=== PATIENT | female | born 1945 | race American Indian/Alaskan Native ===

== ENCOUNTER 2017-08-30 22:18 | Emergency (ER) | payer MEDICARE, MEDICAID ==
[~2017-08-30] VITALS: Ht 160 cm; Wt 114.0 kg
[~2017-08-30 22:18] MED LIST: ASPI-611 PO; CHOL10002 PO; DICY10CA88 PO; DIPH25CA83 PO; DOCU100C40 PO; GUAI600T45 PO; HYDR-565 PO; IBUP-1984 PO; LACT1CAP26 PO; LEVA15HF4 INH; LEVO50TA PO; LEVO750T46 PO; LOSA50TA3 PO; MAGN500T2 PO; METF1000 PO; NICO-631 TD; PANT40TA4 PO; PHEN15CA PO; ROSU10TA PO; SAXA5TAB PO; UMEC62.5 INH
[2017-08-30 22:24] VITALS: BP 140/66
== END 2017-08-31 00:04 | disposition home or self-care (01) ==
LOC: ER 22:19
DX: R04.0 Epistaxis (principal); E78.00 Pure hypercholesterolemia, unspecified; I10 Essential (primary) hypertension; J44.9 Chronic obstructive pulmonary disease, unspecified; E11.9 Type 2 diabetes mellitus without complications; Z90.49 Acquired absence of other specified parts of digestive tract; Z88.0 Allergy status to penicillin; Z88.2 Allergy status to sulfonamides; Z88.8 Allergy status to other drugs, medicaments and biological substances; Z91.040 Latex allergy status; Z91.013 Allergy to seafood; Z88.5 Allergy status to narcotic agent; Z91.018 Allergy to other foods; Z79.82 Long term (current) use of aspirin; Z79.84 Long term (current) use of oral hypoglycemic drugs; Z79.899 Other long term (current) drug therapy
CPT/HCPCS: 99281

== ENCOUNTER 2017-10-08 16:49 | Inpatient (IN) | payer MEDICARE, MEDICAID ==
[~2017-10-08] VITALS: Ht 160 cm; Wt 119.0 kg
[2017-10-08 17:35] LABS: BASOPHILS % (AUTO) 0 % (0-1); EOSINOPHILS # (AUTO) 0.1 X10'3 (0-0.9); EOSINOPHILS % (AUTO) 0.8 % (0-6); HEMATOCRIT 43.6 % (35.0-45.0); HEMOGLOBIN 14.4 g/dl (12.0-16.0); LYMPHOCYTES # (AUTO) 0.9 X10'3 (1.1-4.8); LYMPHOCYTES % (AUTO) 8.9 % (21-51); MEAN CORPUSCULAR HEMOGLOBIN 28.5 PG (27.0-31.0); MEAN CORPUSCULAR VOLUME 86.5 FL (78-98); MEAN PLATELET VOLUME 6.9 FL (7.4-10.4); MONOCYTES # (AUTO) 0.4 X10'3 (0-0.9); MONOCYTES % (AUTO) 3.5 % (2-12); NEUTROPHILS % (AUTO) 86.8 % (42-75); PLATELET COUNT 354 X10'3 (140-440); RED BLOOD COUNT 5.05 X10'6 (4.20-5.60); RED CELL DISTRIBUTION WIDTH 15.3 % (11.5-14.5); WHITE BLOOD COUNT 10.3 X10'3 (4.5-11.0)
[2017-10-08 17:49] LABS: PARTIAL THROMBOPLASTIN TIME 28 SECONDS (22-32); PROTHROMBIN TIME 10.6 SECONDS (9.0-12.0)
[2017-10-08 17:59] LABS: ALANINE AMINOTRANSFERASE 26 U/L (12-78); ALBUMIN/GLOBULIN RATIO 0.5 (1.1-1.5); ALKALINE PHOSPHATASE 143 IU/L (46-116); ANION GAP 7 (8-16); ASPARTATE AMINO TRANSFERASE 24 U/L (10-37); BILIRUBIN,TOTAL 0.7 MG/DL (0.1-1.0); BLOOD UREA NITROGEN 14 MG/DL (7-18); BUN/CREATININE RATIO 19.2 (6.6-38.0); CALCIUM 8.8 MG/DL (8.5-10.1); CHLORIDE 99 MMOL/L (99-107); CREATININE 0.73 MG/DL (0.40-0.90); GLUCOSE 159 MG/DL (70-104); POTASSIUM 3.7 MMOL/L (3.5-5.1); SODIUM 138 MMOL/L (135-145); TOTAL CARBON DIOXIDE 32.2 MMOL/L (24-32); TOTAL PROTEIN 8.5 G/DL (6.4-8.2); eGFR 79 ML/MIN
[2017-10-08 20:14] LABS: D-DIMER 0.73 MG/L FEU (0-0.50)
[2017-10-08 20:25] LABS: ABG BASE EXCESS 2.3 mmol/L (-2.0-3.0); ABG HCO3 28.5 mmol/L (22.0-26.0); ABG OXYGEN SATURATION 92.9 % (95-98); ABG PCO2 (T) 50.2 mmHg (32.0-45.0); ABG PH (T) 7.373 (7.350-7.450); ABG PO2 (T) 71.4 mmHg (83-108); ALLEN'S TEST Positive; FCOHb 3.1 % (0.5-1.5); FLOW 5 L/min; FMetHb 0.1 % (0.3-1.12); FO2Hb 89.9 % (94-100); PATIENT TEMPERATURE 37.1; RESPIRATORY RATE (OBSERVED) 20 b/min
[2017-10-08] MEDS ORDERED: NORepinephrine 8mg/ 250ml NS 250 ML IV SCH (20:50)
[2017-10-08] MEDS ORDERED: furosemide 10 MG/1 ML 10ml inj IV ONE (21:25)
[2017-10-08] MEDS ORDERED: iohexol 350MG/ML 100ml bottle IV ONE (22:11)
[2017-10-08 22:33] LABS: CLARITY,URINE SLIGHTLY CLOUDY (Clear); COLOR,URINE YELLOW (Yellow); GLUCOSE, URINE NEGATIVE (Neg); KETONES,URINE NEGATIVE (Neg); LEUKOCYTE ESTERASE ,URINE NEGATIVE (Neg); NITRITES, URINE NEGATIVE (Neg); OCCULT BLOOD,URINE SMALL (Neg); PH,URINE 5.5 (4.8-8.0); PROTEIN,URINE 100 mg/dl (Neg); UROBILINOGEN,URINE 0.2 E.U/dL (0.2-1.0)
[2017-10-08 22:34] LABS: UA COLLECTION TYPE CLN CATCH MIDSTREAM
[2017-10-08 22:44] LABS: BACTERIA,URINE FEW /HPF (Neg); MUCUS STRANDS MODERATE /LPF (Neg); RBC,URINE 0-2 /HPF (0-2); SQUAMOUS EPITHELIAL CELL,UR MODERATE /LPF (FEW); WBC,URINE 0-4 /HPF (0-4)
[2017-10-08] MEDS ORDERED: mag hydrox/Alum hydrox/simeth 30ml oral suspension PO PRN (22:45)
[2017-10-08] MEDS ORDERED: magnesium hydroxide 30ml (MOM) UD suspension PO PRN (22:45)
[2017-10-08] MEDS ORDERED: ondansetron/PF 4mg/2ml inj IV PRN (22:45)
[2017-10-08] MEDS: ipratropium/albuterol 3ml nebule NEB SCH (23:00)
[2017-10-08] MEDS ORDERED: glucagon, human recombinant 1mg kit SUBCUT PRN (23:00)
[2017-10-08] MEDS ORDERED: dextrose 50%-water 50ml dispensing syringe IV PRN ×2 (23:00)
[2017-10-08] MEDS ORDERED: dextrose ORAL solution 15 GM/59 ML bottle PO PRN ×2 (23:00)
[2017-10-08] MEDS ORDERED: MESSAGE TO PHARMACY PO ONE (23:00)
[2017-10-08 23:38] LABS: HEMOGLOBIN A1C 7.3 % (4.5-6.2)
[2017-10-08] MEDS: cefTRIAXone 1g/NS 100ml IVPB 100 ML IV SCH (23:39)
[2017-10-09] MEDS ORDERED: methylPREDNISolone sod succ 125mg/2ml vial IV ONE
[2017-10-09] MEDS: HYDROcodone/acetaminophen 5mg/325mg tablet PO PRN ×3 (02:19→18:05)
[2017-10-09] MEDS: ipratropium/albuterol 3ml nebule NEB SCH ×5 (03:11→20:21)
[2017-10-09 05:55] LABS: BASOPHILS % (AUTO) 0 % (0-1); EOSINOPHILS # (AUTO) 0.2 X10'3 (0-0.9); EOSINOPHILS % (AUTO) 1.6 % (0-6); HEMATOCRIT 42.1 % (35.0-45.0); HEMOGLOBIN 14.1 g/dl (12.0-16.0); LYMPHOCYTES # (AUTO) 0.9 X10'3 (1.1-4.8); LYMPHOCYTES % (AUTO) 8.1 % (21-51); MEAN CORPUSCULAR HEMOGLOBIN 28.7 PG (27.0-31.0); MEAN CORPUSCULAR HGB CONC 33.4 % (33.0-36.5); MEAN CORPUSCULAR VOLUME 86.1 FL (78-98); MEAN PLATELET VOLUME 6.9 FL (7.4-10.4); MONOCYTES # (AUTO) 0.1 X10'3 (0-0.9); MONOCYTES % (AUTO) 0.8 % (2-12); NEUTROPHILS % (AUTO) 89.5 % (42-75); PLATELET COUNT 360 X10'3 (140-440); RED BLOOD COUNT 4.89 X10'6 (4.20-5.60); RED CELL DISTRIBUTION WIDTH 15.3 % (11.5-14.5); WHITE BLOOD COUNT 11.2 X10'3 (4.5-11.0)
[2017-10-09 06:18] LABS: ALANINE AMINOTRANSFERASE 25 U/L (12-78); ALBUMIN/GLOBULIN RATIO 0.6 (1.1-1.5); ALKALINE PHOSPHATASE 133 IU/L (46-116); ANION GAP 9 (8-16); ASPARTATE AMINO TRANSFERASE 23 U/L (10-37); BILIRUBIN,TOTAL 0.5 MG/DL (0.1-1.0); BLOOD UREA NITROGEN 17 MG/DL (7-18); BUN/CREATININE RATIO 21.3 (6.6-38.0); CALCIUM 8.9 MG/DL (8.5-10.1); CHLORIDE 98 MMOL/L (99-107); GLUCOSE 252 MG/DL (70-104); POTASSIUM 4.2 MMOL/L (3.5-5.1); SODIUM 137 MMOL/L (135-145); TOTAL CARBON DIOXIDE 29.9 MMOL/L (24-32); TOTAL PROTEIN 8.4 G/DL (6.4-8.2); eGFR 71 ML/MIN
[2017-10-09] MEDS: levoTHYROXINE 25mcg tablet PO SCH (07:05)
[2017-10-09] MEDS: pantoprazole 40mg Tablet.DR PO SCH (07:06)
[2017-10-09] MEDS: losartan 50mg tablet PO SCH (07:50)
[2017-10-09] MEDS: heparin, porcine 5000 units/ml vial SQ SCH ×2 (07:50→21:06)
[2017-10-09] MEDS: lactobacillus rhamnosus 10,000 MMU CELLS/CAPSULE PO SCH ×2 (07:51→21:06)
[2017-10-09] MEDS: atorvastatin 20mg tablet PO SCH (07:51)
[2017-10-09] MEDS: aspirin 81mg tablet.DR PO SCH (07:51)
[2017-10-09] MEDS: linagliptin 5mg tablet PO SCH (07:52)
[2017-10-09] MEDS: cefTRIAXone 1g/NS 100ml IVPB 100 ML IV SCH (07:52)
[2017-10-09] MEDS: insulin Lispro (HumaLOG) vial - multi-dose SQ SCH (08:39)
[2017-10-09 15:10] LABS: ABG BASE EXCESS 4.5 mmol/L (-2.0-3.0); ABG HCO3 32.6 mmol/L (22.0-26.0); ABG OXYGEN SATURATION 92.3 % (95-98); ABG PCO2 (T) 63.9 mmHg (32.0-45.0); ABG PH (T) 7.325 (7.350-7.450); ABG PO2 (T) 68.4 mmHg (83-108); ALLEN'S TEST Positive; FCOHb 1.3 % (0.5-1.5); FLOW 6 L/min; FMetHb 0.2 % (0.3-1.12); FO2Hb 90.9 % (94-100); TOTAL HEMOGLOBIN 14.3 G/dl (12.0-16.0)
[2017-10-09 17:57] VITALS: BP 99/63
[2017-10-09 18:00] VITALS: BP 109/54
[2017-10-09] MEDS: insulin glargine (Lantus) pen - multi-dose SQ SCH (21:00)
[2017-10-09 22:00] VITALS: BP 108/45
[2017-10-09] MEDS: acetaminophen 325mg tablet PO PRN (23:28)
[2017-10-10 02:00] VITALS: BP 116/58
[2017-10-10] MEDS: ipratropium/albuterol 3ml nebule NEB SCH ×7 (04:11→23:52)
[2017-10-10 07:22] LABS: BASOPHILS % (AUTO) 0.3 % (0-1); EOSINOPHILS # (AUTO) 0.1 X10'3 (0-0.9); EOSINOPHILS % (AUTO) 1.3 % (0-6); HEMATOCRIT 41.7 % (35.0-45.0); LYMPHOCYTES # (AUTO) 1.7 X10'3 (1.1-4.8); LYMPHOCYTES % (AUTO) 16.3 % (21-51); MEAN CORPUSCULAR HEMOGLOBIN 28.7 PG (27.0-31.0); MEAN CORPUSCULAR HGB CONC 33.6 % (33.0-36.5); MEAN CORPUSCULAR VOLUME 85.6 FL (78-98); MEAN PLATELET VOLUME 6.9 FL (7.4-10.4); MONOCYTES # (AUTO) 0.3 X10'3 (0-0.9); MONOCYTES % (AUTO) 2.8 % (2-12); NEUTROPHILS # (AUTO) 8.2 X10'3 (1.8-7.7); NEUTROPHILS % (AUTO) 79.3 % (42-75); PLATELET COUNT 368 X10'3 (140-440); RED BLOOD COUNT 4.87 X10'6 (4.20-5.60); WHITE BLOOD COUNT 10.3 X10'3 (4.5-11.0)
[2017-10-10 07:25] VITALS: BP 100/60
[2017-10-10 07:30] LABS: ALANINE AMINOTRANSFERASE 27 U/L (12-78); ALBUMIN/GLOBULIN RATIO 0.6 (1.1-1.5); ALKALINE PHOSPHATASE 136 IU/L (46-116); ANION GAP 6 (8-16); ASPARTATE AMINO TRANSFERASE 28 U/L (10-37); BILIRUBIN,TOTAL 0.5 MG/DL (0.1-1.0); BLOOD UREA NITROGEN 16 MG/DL (7-18); BUN/CREATININE RATIO 23.9 (6.6-38.0); CALCIUM 9.2 MG/DL (8.5-10.1); CHLORIDE 96 MMOL/L (99-107); CREATININE 0.67 MG/DL (0.40-0.90); GLUCOSE 138 MG/DL (70-104); POTASSIUM 3.9 MMOL/L (3.5-5.1); SODIUM 137 MMOL/L (135-145); TOTAL PROTEIN 8.4 G/DL (6.4-8.2); eGFR 87 ML/MIN
[2017-10-10] MEDS: losartan 50mg tablet PO SCH (08:00)
[2017-10-10] MEDS: cefTRIAXone 1g/NS 100ml IVPB 100 ML IV SCH (08:10)
[2017-10-10] MEDS: lactobacillus rhamnosus 10,000 MMU CELLS/CAPSULE PO SCH ×2 (08:10→21:16)
[2017-10-10] MEDS: levoTHYROXINE 25mcg tablet PO SCH (08:11)
[2017-10-10] MEDS: heparin, porcine 5000 units/ml vial SQ SCH ×2 (08:11→21:17)
[2017-10-10] MEDS: atorvastatin 20mg tablet PO SCH (08:11)
[2017-10-10] MEDS: linagliptin 5mg tablet PO SCH (08:12)
[2017-10-10] MEDS: aspirin 81mg tablet.DR PO SCH (08:12)
[2017-10-10] MEDS: pantoprazole 40mg Tablet.DR PO SCH (08:12)
[2017-10-10] MEDS: methylPREDNISolone sod succ 125mg/2ml vial IV SCH ×2 (09:55→21:16)
[2017-10-10 11:00] VITALS: BP 129/61
[2017-10-10 11:46] LABS: ABG BASE EXCESS 2.9 mmol/L (-2.0-3.0); ABG HCO3 30.9 mmol/L (22.0-26.0); ABG OXYGEN SATURATION 90.9 % (95-98); ABG PCO2 (T) 62.4 mmHg (32.0-45.0); ABG PH (T) 7.313 (7.350-7.450); ABG PO2 (T) 63.5 mmHg (83-108); FCOHb 1.1 % (0.5-1.5); FLOW 6 L/min; FMetHb 0.2 % (0.3-1.12); FO2Hb 89.7 % (94-100); TOTAL HEMOGLOBIN 14.5 G/dl (12.0-16.0)
[2017-10-10 15:00] VITALS: BP 99/80
[2017-10-10 19:00] VITALS: BP 115/49
[2017-10-10] MEDS: insulin Lispro (HumaLOG) vial - multi-dose SQ SCH (19:34)
[2017-10-10] MEDS: insulin glargine (Lantus) pen - multi-dose SQ SCH (21:31)
[2017-10-10] MEDS: acetaminophen 325mg tablet PO PRN (21:37)
[2017-10-10 23:00] VITALS: BP 118/83
[2017-10-11] VITALS (7 sets, daily range): BP systolic 106–135; BP diastolic 40–72
[2017-10-11] MEDS: ipratropium/albuterol 3ml nebule NEB SCH ×6 (03:39→23:38)
[2017-10-11 06:34] LABS: BASOPHILS % (AUTO) 0.2 % (0-1); EOSINOPHILS # (AUTO) 0.1 X10'3 (0-0.9); EOSINOPHILS % (AUTO) 1.3 % (0-6); HEMATOCRIT 42.2 % (35.0-45.0); HEMOGLOBIN 14.1 g/dl (12.0-16.0); LYMPHOCYTES # (AUTO) 0.8 X10'3 (1.1-4.8); LYMPHOCYTES % (AUTO) 10.4 % (21-51); MEAN CORPUSCULAR HEMOGLOBIN 28.7 PG (27.0-31.0); MEAN CORPUSCULAR HGB CONC 33.3 % (33.0-36.5); MEAN CORPUSCULAR VOLUME 86.2 FL (78-98); MONOCYTES # (AUTO) 0.1 X10'3 (0-0.9); MONOCYTES % (AUTO) 1.2 % (2-12); NEUTROPHILS % (AUTO) 86.9 % (42-75); PLATELET COUNT 320 X10'3 (140-440); RED CELL DISTRIBUTION WIDTH 14.5 % (11.5-14.5); WHITE BLOOD COUNT 8.1 X10'3 (4.5-11.0)
[2017-10-11 07:03] LABS: ALANINE AMINOTRANSFERASE 38 U/L (12-78); ALBUMIN/GLOBULIN RATIO 0.6 (1.1-1.5); ALKALINE PHOSPHATASE 158 IU/L (46-116); ANION GAP 4 (8-16); ASPARTATE AMINO TRANSFERASE 38 U/L (10-37); BILIRUBIN,TOTAL 0.5 MG/DL (0.1-1.0); BLOOD UREA NITROGEN 17 MG/DL (7-18); BUN/CREATININE RATIO 30.4 (6.6-38.0); CALCIUM 9.4 MG/DL (8.5-10.1); CHLORIDE 98 MMOL/L (99-107); CREATININE 0.56 MG/DL (0.40-0.90); GLUCOSE 198 MG/DL (70-104); POTASSIUM 4.9 MMOL/L (3.5-5.1); SODIUM 138 MMOL/L (135-145); TOTAL CARBON DIOXIDE 35.6 MMOL/L (24-32); TOTAL PROTEIN 8.3 G/DL (6.4-8.2); eGFR > 90 ML/MIN
[2017-10-11] MEDS: furosemide 20 MG/2 ML vial IV SCH (07:13)
[2017-10-11] MEDS: methylPREDNISolone sod succ 125mg/2ml vial IV SCH ×2 (07:13→20:16)
[2017-10-11] MEDS: linagliptin 5mg tablet PO SCH (07:14)
[2017-10-11] MEDS: levoTHYROXINE 25mcg tablet PO SCH (07:14)
[2017-10-11] MEDS: heparin, porcine 5000 units/ml vial SQ SCH ×2 (07:14→20:16)
[2017-10-11] MEDS: lactobacillus rhamnosus 10,000 MMU CELLS/CAPSULE PO SCH ×2 (07:15→20:12)
[2017-10-11] MEDS: losartan 25mg tablet PO SCH (07:15)
[2017-10-11] MEDS: pantoprazole 40mg Tablet.DR PO SCH (07:15)
[2017-10-11] MEDS: aspirin 81mg tablet.DR PO SCH (07:15)
[2017-10-11] MEDS: atorvastatin 20mg tablet PO SCH (07:15)
[2017-10-11] MEDS ORDERED: CefTRIAXone/D5W-Rocephin 1gm 50 ML IV SCH (08:00)
[2017-10-11] MEDS: insulin Lispro (HumaLOG) vial - multi-dose SQ SCH ×2 (09:55→13:23)
[2017-10-11] MEDS ORDERED: nicotine 14mg patch - 24hr TD ONE (14:00)
[2017-10-11] MEDS: HYDROcodone/acetaminophen 5mg/325mg tablet PO PRN (20:12)
[2017-10-11] MEDS: insulin glargine (Lantus) pen - multi-dose SQ SCH (21:42)
[2017-10-12 02:00] VITALS: BP 125/68
[2017-10-12] MEDS: ipratropium/albuterol 3ml nebule NEB SCH ×5 (03:32→20:19)
[2017-10-12] MEDS: HYDROcodone/acetaminophen 5mg/325mg tablet PO PRN ×2 (04:42→21:09)
[2017-10-12 05:24] LABS: BASOPHILS % (AUTO) 0.1 % (0-1); EOSINOPHILS # (AUTO) 0.1 X10'3 (0-0.9); EOSINOPHILS % (AUTO) 1.2 % (0-6); HEMATOCRIT 41.1 % (35.0-45.0); HEMOGLOBIN 13.7 g/dl (12.0-16.0); LYMPHOCYTES # (AUTO) 0.8 X10'3 (1.1-4.8); LYMPHOCYTES % (AUTO) 7.7 % (21-51); MEAN CORPUSCULAR HEMOGLOBIN 28.8 PG (27.0-31.0); MEAN CORPUSCULAR HGB CONC 33.3 % (33.0-36.5); MEAN CORPUSCULAR VOLUME 86.4 FL (78-98); MEAN PLATELET VOLUME 7.1 FL (7.4-10.4); MONOCYTES # (AUTO) 0.3 X10'3 (0-0.9); MONOCYTES % (AUTO) 2.8 % (2-12); NEUTROPHILS # (AUTO) 9.4 X10'3 (1.8-7.7); NEUTROPHILS % (AUTO) 88.2 % (42-75); PLATELET COUNT 333 X10'3 (140-440); RED BLOOD COUNT 4.76 X10'6 (4.20-5.60); RED CELL DISTRIBUTION WIDTH 14.8 % (11.5-14.5); WHITE BLOOD COUNT 10.6 X10'3 (4.5-11.0)
[2017-10-12 06:00] VITALS: BP 123/50
[2017-10-12 06:36] LABS: ALANINE AMINOTRANSFERASE 36 U/L (12-78); ALBUMIN/GLOBULIN RATIO 0.6 (1.1-1.5); ALKALINE PHOSPHATASE 143 IU/L (46-116); ANION GAP 5 (8-16); ASPARTATE AMINO TRANSFERASE 29 U/L (10-37); BILIRUBIN,TOTAL 0.4 MG/DL (0.1-1.0); BLOOD UREA NITROGEN 20 MG/DL (7-18); BUN/CREATININE RATIO 31.3 (6.6-38.0); CALCIUM 9.3 MG/DL (8.5-10.1); CHLORIDE 98 MMOL/L (99-107); CREATININE 0.64 MG/DL (0.40-0.90); GLUCOSE 237 MG/DL (70-104); POTASSIUM 4.9 MMOL/L (3.5-5.1); SODIUM 138 MMOL/L (135-145); TOTAL CARBON DIOXIDE 34.9 MMOL/L (24-32); TOTAL PROTEIN 8.3 G/DL (6.4-8.2); eGFR > 90 ML/MIN
[2017-10-12] MEDS: methylPREDNISolone sod succ 125mg/2ml vial IV SCH ×2 (07:36→19:39)
[2017-10-12] MEDS: furosemide 20 MG/2 ML vial IV SCH (07:36)
[2017-10-12] MEDS: nicotine 14mg patch - 24hr TD SCH (07:37)
[2017-10-12] MEDS: heparin, porcine 5000 units/ml vial SQ SCH ×2 (07:37→19:38)
[2017-10-12] MEDS: lactobacillus rhamnosus 10,000 MMU CELLS/CAPSULE PO SCH ×2 (07:37→19:36)
[2017-10-12] MEDS: pantoprazole 40mg Tablet.DR PO SCH (07:38)
[2017-10-12] MEDS: linagliptin 5mg tablet PO SCH (07:38)
[2017-10-12] MEDS: aspirin 81mg tablet.DR PO SCH (07:38)
[2017-10-12] MEDS: atorvastatin 20mg tablet PO SCH (07:38)
[2017-10-12] MEDS: losartan 25mg tablet PO SCH (07:38)
[2017-10-12] MEDS: levoTHYROXINE 25mcg tablet PO SCH (07:38)
[2017-10-12] MEDS: CefTRIAXone inj 1,000 MG in normal saline 100ml IV soln 100 ML IV SCH (07:50)
[2017-10-12] MEDS: insulin Lispro (HumaLOG) vial - multi-dose SQ SCH ×2 (09:08→13:28)
[2017-10-12 11:00] VITALS: BP 114/52
[2017-10-12 15:00] VITALS: BP 127/54
[2017-10-12 18:30] VITALS: BP 133/52
[2017-10-12] MEDS: insulin glargine (Lantus) pen - multi-dose SQ SCH (21:27)
[2017-10-12 22:00] VITALS: BP 126/57
[2017-10-13] MEDS: ipratropium/albuterol 3ml nebule NEB SCH ×5 (00:43→15:35)
[2017-10-13] MEDS: HYDROcodone/acetaminophen 5mg/325mg tablet PO PRN ×3 (01:46→11:35)
[2017-10-13 02:00] VITALS: BP 114/55
[2017-10-13 05:21] LABS: BASOPHILS % (AUTO) 0.2 % (0-1); EOSINOPHILS # (AUTO) 0.2 X10'3 (0-0.9); EOSINOPHILS % (AUTO) 1.2 % (0-6); HEMATOCRIT 42.6 % (35.0-45.0); LYMPHOCYTES # (AUTO) 1.5 X10'3 (1.1-4.8); LYMPHOCYTES % (AUTO) 11.9 % (21-51); MEAN CORPUSCULAR HEMOGLOBIN 28.6 PG (27.0-31.0); MEAN CORPUSCULAR HGB CONC 32.9 % (33.0-36.5); MONOCYTES # (AUTO) 0.6 X10'3 (0-0.9); MONOCYTES % (AUTO) 4.7 % (2-12); NEUTROPHILS # (AUTO) 10.5 X10'3 (1.8-7.7); PLATELET COUNT 366 X10'3 (140-440); RED CELL DISTRIBUTION WIDTH 15.3 % (11.5-14.5); WHITE BLOOD COUNT 12.8 X10'3 (4.5-11.0)
[2017-10-13 06:04] LABS: ALANINE AMINOTRANSFERASE 29 U/L (12-78); ALBUMIN/GLOBULIN RATIO 0.6 (1.1-1.5); ALKALINE PHOSPHATASE 131 IU/L (46-116); ANION GAP 2 (8-16); ASPARTATE AMINO TRANSFERASE 27 U/L (10-37); BILIRUBIN,TOTAL 0.4 MG/DL (0.1-1.0); BLOOD UREA NITROGEN 18 MG/DL (7-18); CALCIUM 9.2 MG/DL (8.5-10.1); CHLORIDE 98 MMOL/L (99-107); CREATININE 0.62 MG/DL (0.40-0.90); GLUCOSE 169 MG/DL (70-104); POTASSIUM 4.5 MMOL/L (3.5-5.1); SODIUM 141 MMOL/L (135-145); TOTAL PROTEIN 8.2 G/DL (6.4-8.2); eGFR > 90 ML/MIN
[2017-10-13 06:18] LABS: TOTAL CARBON DIOXIDE 40.9 MMOL/L (24-32)
[2017-10-13 07:00] VITALS: BP 97/60
[2017-10-13] MEDS: lactobacillus rhamnosus 10,000 MMU CELLS/CAPSULE PO SCH (07:56)
[2017-10-13] MEDS: atorvastatin 20mg tablet PO SCH (07:56)
[2017-10-13] MEDS: levoTHYROXINE 25mcg tablet PO SCH (07:57)
[2017-10-13] MEDS: pantoprazole 40mg Tablet.DR PO SCH (07:57)
[2017-10-13] MEDS: aspirin 81mg tablet.DR PO SCH (07:57)
[2017-10-13] MEDS: CefTRIAXone inj 1,000 MG in normal saline 100ml IV soln 100 ML IV SCH (07:58)
[2017-10-13] MEDS: linagliptin 5mg tablet PO SCH (07:58)
[2017-10-13] MEDS ORDERED: losartan 25mg tablet PO SCH (08:00)
[2017-10-13] MEDS: nicotine 14mg patch - 24hr TD SCH (08:02)
[2017-10-13] MEDS: heparin, porcine 5000 units/ml vial SQ SCH (08:07)
[2017-10-13] MEDS: furosemide 20 MG/2 ML vial IV SCH ×2 (08:08→08:09)
[2017-10-13] MEDS: methylPREDNISolone sod succ 125mg/2ml vial IV SCH (08:08)
[2017-10-13] MEDS ORDERED: LORazepam 1 MG tablet PO PRN (09:25)
[2017-10-13] MEDS: insulin Lispro (HumaLOG) vial - multi-dose SQ SCH ×2 (09:39→13:15)
[2017-10-13 11:00] VITALS: BP 120/64
[2017-10-13] MEDS ORDERED: NICO-631 TD (13:46)
[2017-10-13] MEDS ORDERED: IPRA3AMP9 NEB (13:46)
[2017-10-13] MEDS ORDERED: ATI1T PO (13:46)
[2017-10-13] MEDS ORDERED: LOSA25TA21 PO (13:46)
[2017-10-13] MEDS ORDERED: PRED10TA23 PO (14:16)
[2017-10-13] MEDS ORDERED: FURO-150 PO (14:28)
[2017-10-13] MEDS ORDERED: AZIT500T PO ×2 (14:33)
[2017-10-13 15:00] VITALS: BP 149/61
[2017-10-14] MEDS ORDERED: prednisone 10mg tablet PO SCH (08:30)
== END 2017-10-13 16:35 | disposition home health service (06) | DRG 291 ==
LOC: ER 16:49 → ED HOLD 22:41 → EDBEDREQ 10-09 15:11 → PCU 3S 10-09 17:40
PROVIDERS: ADMIT Internal Medicine; ATTEND Internal Medicine
PROC: 5A09357 Assistance with Respiratory Ventilation, Less than 24 Consecutive Hours, Continuous Positive Airway Pressure (ICD-10-PCS; principal; 2017-10-09)
DX: I11.0 Hypertensive heart disease with heart failure (principal); J18.1 Lobar pneumonia, unspecified organism; J96.01 Acute respiratory failure with hypoxia; J44.1 Chronic obstructive pulmonary disease with (acute) exacerbation; Z68.42 Body mass index [BMI] 45.0-49.9, adult; J44.0 Chronic obstructive pulmonary disease with (acute) lower respiratory infection; I50.23 Acute on chronic systolic (congestive) heart failure; E11.9 Type 2 diabetes mellitus without complications; E66.9 Obesity, unspecified; E78.00 Pure hypercholesterolemia, unspecified; F17.200 Nicotine dependence, unspecified, uncomplicated; Z90.49 Acquired absence of other specified parts of digestive tract; Z91.040 Latex allergy status; Z88.5 Allergy status to narcotic agent; Z88.0 Allergy status to penicillin; Z91.013 Allergy to seafood; Z88.2 Allergy status to sulfonamides; Z88.8 Allergy status to other drugs, medicaments and biological substances; Z91.018 Allergy to other foods; Z83.3 Family history of diabetes mellitus; Z81.8 Family history of other mental and behavioral disorders; Z71.6 Tobacco abuse counseling; Z79.82 Long term (current) use of aspirin; Z79.84 Long term (current) use of oral hypoglycemic drugs; Z79.899 Other long term (current) drug therapy
CPT/HCPCS: 36415; 36600; 71045; 80053; 81001; 82803; 82948; 83036; 83880; 84145; 84484; 85018; 85025; 85379; 85610; 85730; 87040; 87070; 93005; 94640; 94660; 94760; 96374; 99291; A6258; J0696; J1644; J1815; J1940; J2405; J2930; J7030; Q9967

== ENCOUNTER 2020-02-21 16:56 | Inpatient (IN) | payer MEDICARE, MEDICAID ==
[~2020-02-21] VITALS: Ht 162.6 cm; Wt 116.5 kg
[~2020-02-21 16:56] MED LIST changes: +ATI1T PO; -DIPH25CA83 PO; -DOCU100C40 PO; +FURO-150 PO; -GUAI600T45 PO; -HYDR-565 PO; +IPRA3AMP9 NEB; -LEVO750T46 PO; +LOSA25TA41 PO; -LOSA50TA3 PO; -PHEN15CA PO; -ROSU10TA PO; +ROSU10TA2 PO; -UMEC62.5 INH
[2020-02-21] MEDS ORDERED: predniSONE 20 mg tablet PO ONE (17:15)
[2020-02-21] MEDS ORDERED: ipratropium/albuterol 3ml nebule NEB ONE (17:15)
--- NOTE | 2020-02-21 17:24 | NUR ---
Pt does not want to take prednisone. Pt got prednisone from her PMD and has taken it. Pt states she started getting redness and swelling after she started taking it.
--- NOTE | 2020-02-21 17:25 | NUR ---
Provider aware Pt does not want to take the medication.
[2020-02-21] MEDS ORDERED: methylPREDNISolone sod succ 125mg/2ml vial IV ONE (17:30)
[2020-02-21 17:33] LABS: BASOPHILS # (AUTO) 0.1 X10'3 (0-0.2); BASOPHILS % (AUTO) 0.5 % (0-1); EOSINOPHILS % (AUTO) 0.3 % (0-6); HEMATOCRIT 30.2 % (35.0-45.0); HEMOGLOBIN 9.4 g/dl (12.0-16.0); LYMPHOCYTES % (AUTO) 13.8 % (21-51); MEAN CORPUSCULAR HEMOGLOBIN 25.6 PG (27.0-31.0); MEAN CORPUSCULAR VOLUME 82.6 FL (78-98); MEAN PLATELET VOLUME 7.3 FL (7.4-10.4); MONOCYTES # (AUTO) 0.6 X10'3 (0-0.9); MONOCYTES % (AUTO) 4.4 % (2-12); NEUTROPHILS # (AUTO) 11.6 X10'3 (1.8-7.7); PLATELET COUNT 367 X10'3 (140-440); RED BLOOD COUNT 3.65 X10'6 (4.20-5.60); RED CELL DISTRIBUTION WIDTH 17.2 % (11.5-14.5); WHITE BLOOD COUNT 14.4 X10'3 (4.5-11.0)
[2020-02-21 17:45] LABS: ALANINE AMINOTRANSFERASE 17 U/L (12-78); ALBUMIN 2.7 G/DL (3.4-5.0); ALBUMIN/GLOBULIN RATIO 0.5 (1.1-1.5); ALKALINE PHOSPHATASE 160 IU/L (46-116); ANION GAP 1 (8-16); ASPARTATE AMINO TRANSFERASE 22 U/L (10-37); BILIRUBIN,TOTAL 0.6 MG/DL (0.1-1.0); BLOOD UREA NITROGEN 21 MG/DL (7-18); BUN/CREATININE RATIO 28.4 (6.6-38.0); CALCIUM 8.8 MG/DL (8.5-10.1); CHLORIDE 98 MMOL/L (99-107); CREATININE 0.74 MG/DL (0.40-0.90); GLUCOSE 130 MG/DL (70-104); POTASSIUM 4.5 MMOL/L (3.5-5.1); SODIUM 138 MMOL/L (135-145); TOTAL CARBON DIOXIDE 39.3 MMOL/L (24-32); TOTAL PROTEIN 7.9 G/DL (6.4-8.2); eGFR 77 ML/MIN
[2020-02-21] MEDS ORDERED: CefTRIAXone/D5W-Rocephin 1gm 50 ML IV STA (17:46)
[2020-02-21] MEDS ORDERED: azithromycin/NS 500mg/250ml 250 ML IV ONE (17:50)
--- NOTE | 2020-02-21 18:00 | NUR ---
micro called regarding patients negative COVID results. Fidencio VALDERRAMA and bianka YOU notified regarding result.
[2020-02-21] MEDS ORDERED: ondansetron/PF 4mg/2ml inj IV PRN (19:40)
[2020-02-21] MEDS ORDERED: magnesium hydroxide 30ml (MOM) UD suspension PO PRN (19:40)
[2020-02-21] MEDS ORDERED: mag hydrox/Alum hydrox/simeth 30ml oral suspension PO PRN (19:40)
[2020-02-21] MEDS ORDERED: acetaminophen 325mg tablet PO PRN (19:40)
[2020-02-21 21:00] VITALS: BP 107/50
[2020-02-21] MEDS: furosemide 10 MG/1 ML 10ml inj IV SCH (22:47)
[2020-02-21] MEDS: methylPREDNISolone sod succ/PF 40mg inj. IV SCH (22:47)
[2020-02-21] MEDS: heparin, porcine 5000 units/ml vial SQ SCH (22:48)
[2020-02-21] MEDS: ipratropium/albuterol 3ml nebule NEB SCH (23:47)
--- NOTE | 2020-02-22 00:17 | NUR ---
PT UP TO THE FLOOR VIA GURNEY AND ONE ATTENDANT, TRANSFERRED TO THE BED VIA SLIDEBOARD, PT IS VERY SOB ON 15L NC, SAT 84%. SITTING IN UPRIGHT POSITION FOR EASE OF BREATH.
[2020-02-22] MEDS ORDERED: dextrose 50%-water 50ml dispensing syringe IV PRN ×2 (00:45)
[2020-02-22] MEDS ORDERED: dextrose ORAL solution 15 GM/59 ML bottle PO PRN ×2 (00:45)
[2020-02-22] MEDS ORDERED: MESSAGE TO PHARMACY PO ONE (00:45)
[2020-02-22] MEDS ORDERED: glucagon, human recombinant 1mg kit SUBCUT PRN (00:45)
[2020-02-22] MEDS: insulin Lispro (HumaLOG) vial - multi-dose SQ SCH ×5 (02:00→22:54)
[2020-02-22] MEDS: ipratropium/albuterol 3ml nebule NEB SCH ×11 (02:57→23:00)
[2020-02-22] MEDS: methylPREDNISolone sod succ/PF 40mg inj. IV SCH ×4 (03:14→20:43)
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
[2020-02-22 06:00] VITALS: BP 111/46
[2020-02-22 06:01] LABS: BASOPHILS % (AUTO) 0 % (0-1); EOSINOPHILS % (AUTO) 0 % (0-6); HEMATOCRIT 30.3 % (35.0-45.0); HEMOGLOBIN 9.3 g/dl (12.0-16.0); LYMPHOCYTES # (AUTO) 0.6 X10'3 (1.1-4.8); LYMPHOCYTES % (AUTO) 3.9 % (21-51); MEAN CORPUSCULAR HEMOGLOBIN 25.4 PG (27.0-31.0); MEAN CORPUSCULAR HGB CONC 30.5 g/dL (33.0-36.5); MEAN CORPUSCULAR VOLUME 83.1 FL (78-98); MEAN PLATELET VOLUME 7.5 FL (7.4-10.4); MONOCYTES # (AUTO) 0.1 X10'3 (0-0.9); MONOCYTES % (AUTO) 0.7 % (2-12); NEUTROPHILS # (AUTO) 15.9 X10'3 (1.8-7.7); NEUTROPHILS % (AUTO) 95.4 % (42-75); PLATELET COUNT 358 X10'3 (140-440); RED BLOOD COUNT 3.65 X10'6 (4.20-5.60); RED CELL DISTRIBUTION WIDTH 17.1 % (11.5-14.5); WHITE BLOOD COUNT 16.7 X10'3 (4.5-11.0)
[2020-02-22 06:05] LABS: ALBUMIN 2.6 G/DL (3.4-5.0); ANION GAP 3 (8-16); BLOOD UREA NITROGEN 24 MG/DL (7-18); CALCIUM 8.6 MG/DL (8.5-10.1); CHLORIDE 97 MMOL/L (99-107); GLUCOSE 299 MG/DL (70-104); POTASSIUM 4.5 MMOL/L (3.5-5.1); SODIUM 135 MMOL/L (135-145); TOTAL CARBON DIOXIDE 35.5 MMOL/L (24-32); eGFR 71 ML/MIN
[2020-02-22 06:18] LABS: HEMOGLOBIN A1C 8.5 % (4.5-6.2)
--- NOTE | 2020-02-22 06:19 | NUR ---
REPORT GIVEN TO LAVELLE CRAIG.
--- NOTE | 2020-02-22 06:43 | NUR ---
Patient in room PCU 3025. I have received report from Rosalba VALDERRAMA and had the opportunity to ask questions and assume patient care.
[2020-02-22] MEDS: azithromycin 250mg tablet PO SCH (08:13)
[2020-02-22] MEDS: heparin, porcine 5000 units/ml vial SQ SCH ×2 (08:16→20:46)
[2020-02-22] MEDS: furosemide 10 MG/1 ML 10ml inj IV SCH ×2 (08:20→20:43)
[2020-02-22] MEDS: CefTRIAXone/D5W-Rocephin 1gm 50 ML IV SCH (08:22)
[2020-02-22] MEDS: HYDROcodone/acetaminophen 5mg/325mg tablet PO PRN ×2 (10:42→18:48)
[2020-02-22 11:00] VITALS: BP 108/45
[2020-02-22] MEDS: diphenhydrAMINE 25mg capsule PO PRN (11:02)
[2020-02-22] MEDS ORDERED: nicotine 14mg patch - 24hr TD ONE (11:15)
--- NOTE | 2020-02-22 11:51 | NUR ---
DM consult: Pt with T2DM, current A1c 8.5%, seen at bedside for written and verbal DM education. Pt states she sees an MD q 3 months for DM management, takes DM medications per rx without difficulties, and just started checking her blood sugar a couple of times last week however is unsure of what the resulting numbers were. Pt states she just started checking her BG levels because she got a new glucometer. Pt states she doesn't follow and specific diabetes diet however reports increasing her vegetable intake. Pt reports her A1c is typically 6-7% and attributes the increase in A1c to stress. Pt denies questions at this time, RD contact information provided. Pt endorses a good appetite and agrees to double protein TID for satiety and requests fruit and no scrambled eggs with breakfasts, d/w dietary. Pt reports food allergy to fish and dislike to soy because it makes her gassy, both already listed in EMR as allergies. Pt denies difficulty chewing/swallowing. Pt reports LBM a few days ago and states she takes prunes for constipation secondary to pain medication. Pt agrees to try power pudding with next meal to assist with bowel regularity, d/w dietary. Will continue to follow. Addendum: 02/22/20 at [address] Amended: Links added.
--- NOTE | 2020-02-22 14:18 | NUR ---
Paged Dr. Floyd. Rosamaria Subramanian. [id number]. Patient has a cough and is asking for cough suppressant. Nothing available. Please advise. TY. Johnson [phone].
[2020-02-22 15:00] VITALS: BP 112/48
[2020-02-22] MEDS: benzocaine/menthol oral lozeng 1 EACH BOX MM PRN ×2 (15:10→19:29)
[2020-02-22] MEDS: linagliptin 5mg tablet PO SCH (15:55)
[2020-02-22] MEDS: aspirin 81mg tablet.DR PO SCH (15:56)
[2020-02-22] MEDS: levoTHYROXINE 25mcg tablet PO SCH (15:56)
[2020-02-22] MEDS: losartan 25mg tablet PO SCH (15:56)
[2020-02-22 18:00] VITALS: BP 98/42
--- NOTE | 2020-02-22 18:15 | NUR ---
Problems reprioritized. Patient report given, questions answered & plan of care reviewed with Jono RN.
--- NOTE | 2020-02-22 18:30 | NUR ---
Patient in room PCU 3025. I have received report from Alex VALDERRAMA and had the opportunity to ask questions and assume patient care.
[2020-02-22] MEDS: dicyclomine 10 MG capsule PO SCH (20:46)
[2020-02-22] MEDS: lactobacillus rhamnosus 10,000 MMU CELLS/CAPSULE PO SCH (20:46)
[2020-02-22] MEDS: NYSTATIN CREAM - 30GM TUBE TP SCH (20:57)
[2020-02-22] MEDS: insulin glargine (Lantus) pen - multi-dose SQ SCH (22:53)
[2020-02-23] MEDS: benzocaine/menthol oral lozeng 1 EACH BOX MM PRN ×6 (00:31→22:31)
[2020-02-23] MEDS: HYDROcodone/acetaminophen 5mg/325mg tablet PO PRN ×4 (00:32→17:05)
[2020-02-23] MEDS: diphenhydrAMINE 25mg capsule PO PRN ×3 (00:34→22:30)
[2020-02-23] MEDS: methylPREDNISolone sod succ/PF 40mg inj. IV SCH ×4 (02:29→19:22)
[2020-02-23] MEDS: dicyclomine 10 MG capsule PO SCH ×4 (02:29→19:22)
[2020-02-23] MEDS: ipratropium/albuterol 3ml nebule NEB SCH ×8 (02:54→23:53)
[2020-02-23 03:00] VITALS: BP 104/51
[2020-02-23 05:51] LABS: BASOPHILS % (AUTO) 0.1 % (0-1); EOSINOPHILS % (AUTO) 0 % (0-6); HEMATOCRIT 30.6 % (35.0-45.0); HEMOGLOBIN 9.4 g/dl (12.0-16.0); LYMPHOCYTES # (AUTO) 0.7 X10'3 (1.1-4.8); MEAN CORPUSCULAR HEMOGLOBIN 25.8 PG (27.0-31.0); MEAN CORPUSCULAR HGB CONC 30.9 g/dL (33.0-36.5); MEAN CORPUSCULAR VOLUME 83.4 FL (78-98); MEAN PLATELET VOLUME 7.5 FL (7.4-10.4); MONOCYTES # (AUTO) 0.3 X10'3 (0-0.9); MONOCYTES % (AUTO) 2.1 % (2-12); NEUTROPHILS # (AUTO) 15.4 X10'3 (1.8-7.7); NEUTROPHILS % (AUTO) 93.8 % (42-75); PLATELET COUNT 381 X10'3 (140-440); RED BLOOD COUNT 3.67 X10'6 (4.20-5.60); RED CELL DISTRIBUTION WIDTH 17.2 % (11.5-14.5); WHITE BLOOD COUNT 16.4 X10'3 (4.5-11.0)
[2020-02-23 06:10] LABS: ALBUMIN 2.8 G/DL (3.4-5.0); ANION GAP 4 (8-16); BLOOD UREA NITROGEN 33 MG/DL (7-18); BUN/CREATININE RATIO 39.8 (6.6-38.0); CALCIUM 9.1 MG/DL (8.5-10.1); CHLORIDE 96 MMOL/L (99-107); CREATININE 0.83 MG/DL (0.40-0.90); GLUCOSE 260 MG/DL (70-104); POTASSIUM 4.3 MMOL/L (3.5-5.1); SODIUM 134 MMOL/L (135-145); TOTAL CARBON DIOXIDE 33.9 MMOL/L (24-32); eGFR 68 ML/MIN
--- NOTE | 2020-02-23 06:17 | NUR ---
Problems reprioritized. Patient report given, questions answered & plan of care reviewed with Alex VALDERRAMA.
--- NOTE | 2020-02-23 06:25 | NUR ---
Patient in room PCU 3025. I have received report from Jono RN and had the opportunity to ask questions and assume patient care.
[2020-02-23 07:00] VITALS: BP 102/55
[2020-02-23] MEDS: CefTRIAXone/D5W-Rocephin 1gm 50 ML IV SCH (07:43)
[2020-02-23] MEDS: furosemide 10 MG/1 ML 10ml inj IV SCH ×2 (07:45→19:22)
[2020-02-23] MEDS: heparin, porcine 5000 units/ml vial SQ SCH ×2 (07:47→19:22)
[2020-02-23] MEDS: levoTHYROXINE 25mcg tablet PO SCH (07:49)
[2020-02-23] MEDS: linagliptin 5mg tablet PO SCH (07:49)
[2020-02-23] MEDS: losartan 25mg tablet PO SCH (07:50)
[2020-02-23] MEDS: azithromycin 250mg tablet PO SCH (07:50)
[2020-02-23] MEDS: pantoprazole 40mg Tablet.DR PO SCH (07:50)
[2020-02-23] MEDS: aspirin 81mg tablet.DR PO SCH (07:51)
[2020-02-23] MEDS: atorvastatin 20mg tablet PO SCH (07:51)
[2020-02-23] MEDS: lactobacillus rhamnosus 10,000 MMU CELLS/CAPSULE PO SCH ×2 (07:51→19:22)
[2020-02-23] MEDS: nicotine 14mg patch - 24hr TD SCH (07:51)
[2020-02-23] MEDS: NYSTATIN CREAM - 30GM TUBE TP SCH ×2 (07:52→19:23)
[2020-02-23] MEDS ORDERED: nicotine 14mg patch - 24hr TD SCH (08:00)
[2020-02-23] MEDS: insulin Lispro (HumaLOG) vial - multi-dose SQ SCH ×3 (08:16→19:21)
[2020-02-23 11:00] VITALS: BP 105/44
[2020-02-23 15:00] VITALS: BP 85/43
--- NOTE | 2020-02-23 16:11 | NUR ---
Patient in room U 3025. I have received report from LAVELLE Johnson and had the opportunity to ask questions and assume patient care. Addendum: 02/23/20 at 1613 by Lupe Patel RN Patient repositioned in bed. On 15L high flow salter.
--- NOTE | 2020-02-23 16:12 | NUR ---
Problems reprioritized. Patient report given, questions answered & plan of care reviewed with Isela VALDERRAMA.
--- NOTE | 2020-02-23 17:52 | NUR ---
Orientee documentation: I have reviewed and agree with all interventions, assessments performed and documented by LAVELLE Layne. Orientee Medication Administration: For this medication-pass time frame, all medication were reviewed, dispensed, administered and documented per hospital policy by LAVELLE Layne.
[2020-02-23 18:00] VITALS: BP 108/45
--- NOTE | 2020-02-23 18:30 | NUR ---
Patient in room PCU 3025. I have received report from Lupe VALDERRAMA and had the opportunity to ask questions and assume patient care.
--- NOTE | 2020-02-23 18:44 | NUR ---
Problems reprioritized. Patient report given, questions answered & plan of care reviewed with Tana VALDERRAMA. Patient stable at transfer of care.
[2020-02-23] MEDS: insulin glargine (Lantus) pen - multi-dose SQ SCH (21:30)
[2020-02-23] MEDS ORDERED: furosemide inj 1,000 MG in normal saline 250ml IV soln 150 ML IV SCH (21:30)
[2020-02-23] MEDS: HYDROcodone/acetaminophen 10/325mg tab PO PRN (22:31)
[2020-02-24 02:00] VITALS: BP 114/46
[2020-02-24] MEDS: dicyclomine 10 MG capsule PO SCH ×4 (02:40→19:25)
[2020-02-24] MEDS: methylPREDNISolone sod succ/PF 40mg inj. IV SCH ×4 (02:41→19:24)
[2020-02-24] MEDS: ipratropium/albuterol 3ml nebule NEB SCH ×6 (04:03→23:24)
[2020-02-24 05:26] LABS: ALBUMIN 2.9 G/DL (3.4-5.0); ANION GAP 3 (8-16); BLOOD UREA NITROGEN 37 MG/DL (7-18); BUN/CREATININE RATIO 48.7 (6.6-38.0); CALCIUM 9.2 MG/DL (8.5-10.1); CHLORIDE 97 MMOL/L (99-107); CREATININE 0.76 MG/DL (0.40-0.90); GLUCOSE 234 MG/DL (70-104); MAGNESIUM 1.9 MG/DL (1.5-2.4); PHOSPHORUS 4.6 MG/DL (2.3-4.5); POTASSIUM 4.3 MMOL/L (3.5-5.1); SODIUM 137 MMOL/L (135-145); TOTAL CARBON DIOXIDE 37.4 MMOL/L (24-32); eGFR 75 ML/MIN
[2020-02-24 05:29] LABS: BASOPHILS % (AUTO) 0.1 % (0-1); EOSINOPHILS % (AUTO) 0 % (0-6); HEMATOCRIT 33.1 % (35.0-45.0); LYMPHOCYTES # (AUTO) 0.6 X10'3 (1.1-4.8); LYMPHOCYTES % (AUTO) 4.5 % (21-51); MEAN CORPUSCULAR HEMOGLOBIN 24.9 PG (27.0-31.0); MEAN CORPUSCULAR HGB CONC 30.1 g/dL (33.0-36.5); MEAN CORPUSCULAR VOLUME 82.7 FL (78-98); MEAN PLATELET VOLUME 7.4 FL (7.4-10.4); MONOCYTES # (AUTO) 0.3 X10'3 (0-0.9); MONOCYTES % (AUTO) 2.5 % (2-12); NEUTROPHILS # (AUTO) 13.1 X10'3 (1.8-7.7); NEUTROPHILS % (AUTO) 92.9 % (42-75); PLATELET COUNT 467 X10'3 (140-440); RED CELL DISTRIBUTION WIDTH 17.3 % (11.5-14.5); WHITE BLOOD COUNT 14.1 X10'3 (4.5-11.0)
[2020-02-24 06:00] VITALS: BP 146/69
--- NOTE | 2020-02-24 06:00 | NUR ---
Patient in room PCU 3025. I have received report from Tana VALDERRAMA and had the opportunity to ask questions and assume patient care.
--- NOTE | 2020-02-24 06:33 | NUR ---
Patient in room PCU 3025. I have received report from Tana VALDERRAMA and had the opportunity to ask questions and assume patient care.
--- NOTE | 2020-02-24 06:37 | NUR ---
Problems reprioritized. Patient report given, questions answered & plan of care reviewed with Lamberto VALDERRAMA.
[2020-02-24] MEDS: benzocaine/menthol oral lozeng 1 EACH BOX MM PRN ×3 (07:05→21:24)
[2020-02-24] MEDS: CefTRIAXone/D5W-Rocephin 1gm 50 ML IV SCH (07:28)
[2020-02-24] MEDS: HYDROcodone/acetaminophen 10/325mg tab PO PRN ×4 (07:29→23:21)
[2020-02-24] MEDS: levoTHYROXINE 25mcg tablet PO SCH (07:29)
[2020-02-24] MEDS: nicotine 14mg patch - 24hr TD SCH (07:30)
[2020-02-24] MEDS: linagliptin 5mg tablet PO SCH (07:31)
[2020-02-24] MEDS: azithromycin 250mg tablet PO SCH (07:32)
[2020-02-24] MEDS: pantoprazole 40mg Tablet.DR PO SCH (07:32)
[2020-02-24] MEDS: losartan 25mg tablet PO SCH (07:33)
[2020-02-24] MEDS: heparin, porcine 5000 units/ml vial SQ SCH ×2 (07:34→19:25)
[2020-02-24] MEDS: atorvastatin 20mg tablet PO SCH (07:34)
[2020-02-24] MEDS: lactobacillus rhamnosus 10,000 MMU CELLS/CAPSULE PO SCH ×2 (07:34→19:24)
[2020-02-24] MEDS: aspirin 81mg tablet.DR PO SCH (07:34)
[2020-02-24] MEDS: NYSTATIN CREAM - 30GM TUBE TP SCH ×2 (08:00→19:33)
[2020-02-24 09:00] LABS: ABG BASE EXCESS 10.9 mmol/L (-2.0-2.0); ABG HCO3 38.9 mmol/L (22.0-26.0); ABG OXYGEN SATURATION 86.4 % (94-97); ABG PCO2 (T) 73.3 mmHg (32.0-45.0); ABG PO2 (T) 55.8 mmHg (75.0-100.0); ALLEN'S TEST POSITIVE; FCOHb 0.6 % (0.0-3.9); FLOW 15 L/min; FMetHb 0.1 % (0.0-1.5); FO2Hb 85.8 % (94-97); TOTAL HEMOGLOBIN 10.7 G/dl (12.0-16.0)
[2020-02-24] MEDS: insulin Lispro (HumaLOG) vial - multi-dose SQ SCH ×4 (09:41→21:23)
[2020-02-24] MEDS ORDERED: furosemide inj 1,000 MG in normal saline 250ml IV soln 150 ML IV SCH (10:17)
[2020-02-24 11:00] VITALS: BP 111/51
[2020-02-24 14:25] LABS: ABG HCO3 39.8 mmol/L (22.0-26.0); ABG OXYGEN SATURATION 95.7 % (94-97); ABG PCO2 (T) 71.4 mmHg (32.0-45.0); ABG PO2 (T) 87.7 mmHg (75.0-100.0); ALLEN'S TEST POSITIVE; FCOHb 0.9 % (0.0-3.9); FMetHb 0.3 % (0.0-1.5); FO2Hb 94.6 % (94-97); RESPIRATORY RATE 10 b/min; TOTAL HEMOGLOBIN 10.7 G/dl (12.0-16.0)
--- NOTE | 2020-02-24 14:54 | NUR ---
Paged Dr. Floyd about Follow up ABG result. PAGER ID: [phone] MESSAGE: [phone]. [place], Shereen. Just FYI, the ABG result came back. pH: 7.364, CO2: 71.4, HCO3: 39.8 Thank You! Alphonse VALDERRAMA [phone]
[2020-02-24 15:00] VITALS: BP 117/67
[2020-02-24 15:58] LABS: ALBUMIN 2.9 G/DL (3.4-5.0); ANION GAP 4 (8-16); BLOOD UREA NITROGEN 41 MG/DL (7-18); BUN/CREATININE RATIO 51.3 (6.6-38.0); CALCIUM 9.2 MG/DL (8.5-10.1); CHLORIDE 97 MMOL/L (99-107); GLUCOSE 92 MG/DL (70-104); MAGNESIUM 1.9 MG/DL (1.5-2.4); PHOSPHORUS 4.3 MG/DL (2.3-4.5); POTASSIUM 3.7 MMOL/L (3.5-5.1); SODIUM 140 MMOL/L (135-145); TOTAL CARBON DIOXIDE 38.6 MMOL/L (24-32); eGFR 71 ML/MIN
--- NOTE | 2020-02-24 18:00 | NUR ---
Orientee documentation: I have reviewed and agree with all interventions, assessments performed and documented by Alphonse Angela.
--- NOTE | 2020-02-24 18:00 | NUR ---
Problems reprioritized. Patient report given, questions answered & plan of care reviewed with Nahid RN.
--- NOTE | 2020-02-24 18:20 | NUR ---
Problems reprioritized. Patient report given, questions answered & plan of care reviewed with Nahid RN.
--- NOTE | 2020-02-24 18:30 | NUR ---
Patient in room PCU 3025. I have received report from Yaniv VALDERRAMA and had the opportunity to ask questions and assume patient care.
[2020-02-24 19:00] VITALS: BP 112/53
[2020-02-24] MEDS: acetaZOLAMIDE 250mg tablet PO SCH (21:18)
[2020-02-24] MEDS: insulin glargine (Lantus) pen - multi-dose SQ SCH (21:20)
--- NOTE | 2020-02-24 22:37 | NUR ---
PAGED DR. MERIDA [phone] - Lohoda, Shereen -CHF/COPD - Pt requesting to change code status. Pt stating "I dont want to be intubated". FYI pt refusing bipap after continous edu. CO2 critical 71.4. Baseline is 10L NC at home on lasix gtt. [phone] Nahid Addendum: 02/24/20 at 2240 by Petros Lawrence RN Discussed pt condition with Dr. Merida - per pt noncompliance and desire to change code status. Dr. Merida stated he will attempt to come back later if possible as he is currently admitting patients and to continue to attempt to educate the patient about needing the bipap on.
[2020-02-24 22:41] LABS: ALBUMIN 2.9 G/DL (3.4-5.0); ANION GAP -1 (8-16); BLOOD UREA NITROGEN 45 MG/DL (7-18); BUN/CREATININE RATIO 47.9 (6.6-38.0); CHLORIDE 95 MMOL/L (99-107); CREATININE 0.94 MG/DL (0.40-0.90); GLUCOSE 340 MG/DL (70-104); PHOSPHORUS 4.5 MG/DL (2.3-4.5); SODIUM 137 MMOL/L (135-145); eGFR 59 ML/MIN
[2020-02-24 22:44] LABS: TOTAL CARBON DIOXIDE 42.6 MMOL/L (24-32)
[2020-02-24 23:00] VITALS: BP 116/52
--- NOTE | 2020-02-24 23:13 | NUR ---
3025A - [facility] venous CO2 critical 42.6 - have to report critical lab per protocol. Pt stated they will reattempt bipap in 20minutes. [phone] Nahid VALDERRAMA Addendum: 02/24/20 at 2316 by Petros Lawrence RN Discussed pt case with Dr. Gore. No new orders at this time. Will attempt and prompt bipap use. Will repeat ABG if patient oxygen condition worsens.
[2020-02-25] MEDS: LORazepam 1 MG tablet PO PRN ×2 (00:29→23:22)
[2020-02-25] MEDS: dicyclomine 10 MG capsule PO SCH ×4 (02:20→20:23)
[2020-02-25] MEDS: methylPREDNISolone sod succ/PF 40mg inj. IV SCH ×2 (02:20→07:31)
[2020-02-25 03:00] VITALS: BP 113/51
[2020-02-25] MEDS: ipratropium/albuterol 3ml nebule NEB SCH ×6 (03:17→23:18)
[2020-02-25 06:00] VITALS: BP 116/57
--- NOTE | 2020-02-25 06:05 | NUR ---
Patient in room PCU 3025. I have received report from Nahid VALDERRAMA and had the opportunity to ask questions and assume patient care.
--- NOTE | 2020-02-25 06:12 | NUR ---
Problems reprioritized. Patient report given, questions answered & plan of care reviewed with Yaniv.
--- NOTE | 2020-02-25 06:39 | NUR ---
Patient in room PCU 3025. I have received report from Nahid VALDERRAMA and had the opportunity to ask questions and assume patient care.
[2020-02-25 06:55] LABS: BASOPHILS % (AUTO) 0.1 % (0-1); EOSINOPHILS % (AUTO) 0 % (0-6); HEMATOCRIT 35.3 % (35.0-45.0); HEMOGLOBIN 10.9 g/dl (12.0-16.0); LYMPHOCYTES # (AUTO) 0.6 X10'3 (1.1-4.8); LYMPHOCYTES % (AUTO) 6.1 % (21-51); MEAN CORPUSCULAR HEMOGLOBIN 25.4 PG (27.0-31.0); MEAN CORPUSCULAR HGB CONC 30.9 g/dL (33.0-36.5); MEAN CORPUSCULAR VOLUME 82.4 FL (78-98); MEAN PLATELET VOLUME 7.2 FL (7.4-10.4); MONOCYTES # (AUTO) 0.3 X10'3 (0-0.9); MONOCYTES % (AUTO) 3.1 % (2-12); NEUTROPHILS # (AUTO) 9.3 X10'3 (1.8-7.7); NEUTROPHILS % (AUTO) 90.7 % (42-75); PLATELET COUNT 446 X10'3 (140-440); RED BLOOD COUNT 4.28 X10'6 (4.20-5.60); RED CELL DISTRIBUTION WIDTH 17.1 % (11.5-14.5); WHITE BLOOD COUNT 10.3 X10'3 (4.5-11.0)
[2020-02-25 07:05] LABS: ALBUMIN 3.1 G/DL (3.4-5.0); ANION GAP 4 (8-16); BLOOD UREA NITROGEN 46 MG/DL (7-18); BUN/CREATININE RATIO 56.8 (6.6-38.0); CALCIUM 9.4 MG/DL (8.5-10.1); CHLORIDE 94 MMOL/L (99-107); CREATININE 0.81 MG/DL (0.40-0.90); GLUCOSE 215 MG/DL (70-104); MAGNESIUM 2.2 MG/DL (1.5-2.4); PHOSPHORUS 5.6 MG/DL (2.3-4.5); POTASSIUM 4.1 MMOL/L (3.5-5.1); SODIUM 136 MMOL/L (135-145); TOTAL CARBON DIOXIDE 38.3 MMOL/L (24-32); eGFR 70 ML/MIN
[2020-02-25] MEDS: heparin, porcine 5000 units/ml vial SQ SCH ×2 (07:31→20:22)
[2020-02-25] MEDS: linagliptin 5mg tablet PO SCH (07:32)
[2020-02-25] MEDS: CefTRIAXone/D5W-Rocephin 1gm 50 ML IV SCH (07:32)
[2020-02-25] MEDS: levoTHYROXINE 25mcg tablet PO SCH (07:32)
[2020-02-25] MEDS: azithromycin 250mg tablet PO SCH (07:32)
[2020-02-25] MEDS: nicotine 14mg patch - 24hr TD SCH (07:33)
[2020-02-25] MEDS: lactobacillus rhamnosus 10,000 MMU CELLS/CAPSULE PO SCH ×2 (07:33→20:23)
[2020-02-25] MEDS: atorvastatin 20mg tablet PO SCH (07:33)
[2020-02-25] MEDS: aspirin 81mg tablet.DR PO SCH (07:33)
[2020-02-25] MEDS: pantoprazole 40mg Tablet.DR PO SCH (07:33)
[2020-02-25] MEDS: losartan 25mg tablet PO SCH (07:34)
[2020-02-25] MEDS: acetaZOLAMIDE 250mg tablet PO SCH ×3 (07:58→23:22)
[2020-02-25] MEDS: NYSTATIN CREAM - 30GM TUBE TP SCH ×2 (08:00→20:00)
[2020-02-25] MEDS: HYDROcodone/acetaminophen 5mg/325mg tablet PO PRN ×2 (08:22→15:35)
[2020-02-25] MEDS: benzocaine/menthol oral lozeng 1 EACH BOX MM PRN ×3 (08:23→19:11)
[2020-02-25] MEDS: insulin Lispro (HumaLOG) vial - multi-dose SQ SCH ×3 (09:21→19:08)
[2020-02-25 11:00] VITALS: BP 124/52
[2020-02-25 13:02] LABS: ANION GAP 2 (8-16); BLOOD UREA NITROGEN 44 MG/DL (7-18); BUN/CREATININE RATIO 51.8 (6.6-38.0); CALCIUM 8.9 MG/DL (8.5-10.1); CHLORIDE 93 MMOL/L (99-107); CREATININE 0.85 MG/DL (0.40-0.90); GLUCOSE 293 MG/DL (70-104); MAGNESIUM 2.2 MG/DL (1.5-2.4); PHOSPHORUS 5.2 MG/DL (2.3-4.5); POTASSIUM 3.7 MMOL/L (3.5-5.1); SODIUM 138 MMOL/L (135-145); eGFR 66 ML/MIN
[2020-02-25 13:06] LABS: TOTAL CARBON DIOXIDE 42.9 MMOL/L (24-32)
--- NOTE | 2020-02-25 13:20 | NUR ---
PAGER ID: [phone] MESSAGE: Re: Shereen Subramanian. Room: [facility]. Critical CO2 of 42.9 -[facility] #[id number] Dr. Floyd paged concerning Pt's critical CO2 of 42.9
[2020-02-25 15:00] VITALS: BP 116/76
[2020-02-25 15:53] LABS: ANION GAP 0 (8-16); BLOOD UREA NITROGEN 43 MG/DL (7-18); CALCIUM 9.1 MG/DL (8.5-10.1); CHLORIDE 94 MMOL/L (99-107); GLUCOSE 298 MG/DL (70-104); MAGNESIUM 2.2 MG/DL (1.5-2.4); PHOSPHORUS 5.1 MG/DL (2.3-4.5); POTASSIUM 3.6 MMOL/L (3.5-5.1); SODIUM 136 MMOL/L (135-145); eGFR 55 ML/MIN
[2020-02-25 15:56] LABS: TOTAL CARBON DIOXIDE 41.9 MMOL/L (24-32)
--- NOTE | 2020-02-25 16:15 | NUR ---
paged Dr. Floyd PAGER ID: [phone] MESSAGE: [id number]. Shereen Subramanian. Just RADHA, lab crit: CO2 of 41.9. Thank You. Alphonse VALDERRAMA [phone]
[2020-02-25] MEDS ORDERED: furosemide inj 1,000 MG in normal saline 250ml IV soln 150 ML IV SCH (16:56)
--- NOTE | 2020-02-25 18:00 | NUR ---
Orientee documentation: I have reviewed and agree with all interventions, assessments performed and documented by Alphonse Angela RN.
--- NOTE | 2020-02-25 18:25 | NUR ---
Problems reprioritized. Patient report given, questions answered & plan of care reviewed with Ayla VALDERRAMA.
--- NOTE | 2020-02-25 18:30 | NUR ---
Problems reprioritized. Patient report given, questions answered & plan of care reviewed with Ayla VALDERRAMA.
[2020-02-25 19:00] VITALS: BP 118/59
[2020-02-25] MEDS: HYDROcodone/acetaminophen 10/325mg tab PO PRN (19:10)
[2020-02-25] MEDS: diphenhydrAMINE 25mg capsule PO PRN (20:23)
[2020-02-25] MEDS ORDERED: furosemide 40mg/4ml inj IV SCH (21:00)
[2020-02-25] MEDS: insulin glargine (Lantus) pen - multi-dose SQ SCH (21:00)
[2020-02-25 22:05] LABS: ALBUMIN 3.1 G/DL (3.4-5.0); ANION GAP 0 (8-16); BLOOD UREA NITROGEN 43 MG/DL (7-18); BUN/CREATININE RATIO 47.3 (6.6-38.0); CALCIUM 9.2 MG/DL (8.5-10.1); CHLORIDE 96 MMOL/L (99-107); CREATININE 0.91 MG/DL (0.40-0.90); GLUCOSE 62 MG/DL (70-104); MAGNESIUM 2.3 MG/DL (1.5-2.4); PHOSPHORUS 4.4 MG/DL (2.3-4.5); POTASSIUM 3.3 MMOL/L (3.5-5.1); SODIUM 139 MMOL/L (135-145); eGFR 61 ML/MIN
[2020-02-25 22:08] LABS: TOTAL CARBON DIOXIDE 42.8 MMOL/L (24-32)
[2020-02-25 23:00] VITALS: BP 112/97
[2020-02-26] MEDS: dicyclomine 10 MG capsule PO SCH ×4 (02:00→23:00)
[2020-02-26 03:00] VITALS: BP 116/52
[2020-02-26] MEDS: ipratropium/albuterol 3ml nebule NEB SCH ×6 (03:22→23:13)
[2020-02-26 05:49] LABS: ALBUMIN 2.8 G/DL (3.4-5.0); ANION GAP -4 (8-16); BLOOD UREA NITROGEN 42 MG/DL (7-18); BUN/CREATININE RATIO 51.2 (6.6-38.0); CALCIUM 9.1 MG/DL (8.5-10.1); CHLORIDE 100 MMOL/L (99-107); CREATININE 0.82 MG/DL (0.40-0.90); GLUCOSE 67 MG/DL (70-104); MAGNESIUM 2.4 MG/DL (1.5-2.4); PHOSPHORUS 4.7 MG/DL (2.3-4.5); POTASSIUM 3.2 MMOL/L (3.5-5.1); SODIUM 140 MMOL/L (135-145); eGFR 69 ML/MIN
[2020-02-26 05:53] LABS: TOTAL CARBON DIOXIDE 43.9 MMOL/L (24-32)
[2020-02-26 06:03] LABS: BASOPHILS % (AUTO) 0.1 % (0-1); EOSINOPHILS % (AUTO) 0.4 % (0-6); HEMATOCRIT 33.2 % (35.0-45.0); HEMOGLOBIN 10.1 g/dl (12.0-16.0); LYMPHOCYTES # (AUTO) 2.4 X10'3 (1.1-4.8); LYMPHOCYTES % (AUTO) 23.9 % (21-51); MEAN CORPUSCULAR HEMOGLOBIN 25.4 PG (27.0-31.0); MEAN CORPUSCULAR HGB CONC 30.5 g/dL (33.0-36.5); MEAN CORPUSCULAR VOLUME 83.1 FL (78-98); MEAN PLATELET VOLUME 7.3 FL (7.4-10.4); MONOCYTES # (AUTO) 0.7 X10'3 (0-0.9); MONOCYTES % (AUTO) 6.6 % (2-12); PLATELET COUNT 458 X10'3 (140-440); RED BLOOD COUNT 3.99 X10'6 (4.20-5.60); RED CELL DISTRIBUTION WIDTH 16.5 % (11.5-14.5); WHITE BLOOD COUNT 10.1 X10'3 (4.5-11.0)
--- NOTE | 2020-02-26 06:24 | NUR ---
Patient in room PCU 3025. I have received report from alma and had the opportunity to ask questions and assume patient care.
[2020-02-26 07:00] VITALS: BP 124/61
[2020-02-26] MEDS: predniSONE 20 mg tablet PO SCH ×2 (08:00→08:08)
[2020-02-26] MEDS: HYDROcodone/acetaminophen 10/325mg tab PO PRN ×2 (08:07→13:01)
[2020-02-26] MEDS: heparin, porcine 5000 units/ml vial SQ SCH ×2 (08:08→22:55)
[2020-02-26] MEDS: atorvastatin 20mg tablet PO SCH (08:08)
[2020-02-26] MEDS: linagliptin 5mg tablet PO SCH (08:08)
[2020-02-26] MEDS: nicotine 14mg patch - 24hr TD SCH (08:08)
[2020-02-26] MEDS: lactobacillus rhamnosus 10,000 MMU CELLS/CAPSULE PO SCH ×2 (08:08→22:54)
[2020-02-26] MEDS: azithromycin 250mg tablet PO SCH (08:09)
[2020-02-26] MEDS: acetaZOLAMIDE 250mg tablet PO SCH ×4 (08:09→22:54)
[2020-02-26] MEDS: aspirin 81mg tablet.DR PO SCH (08:09)
[2020-02-26] MEDS: levoTHYROXINE 25mcg tablet PO SCH (08:09)
[2020-02-26] MEDS: pantoprazole 40mg Tablet.DR PO SCH (08:10)
[2020-02-26] MEDS: benzocaine/menthol oral lozeng 1 EACH BOX MM PRN ×3 (08:10→15:53)
[2020-02-26] MEDS: NYSTATIN CREAM - 30GM TUBE TP SCH ×2 (08:11→22:56)
[2020-02-26] MEDS: diphenhydrAMINE 25mg capsule PO PRN (08:14)
[2020-02-26] MEDS: losartan 25mg tablet PO SCH (08:14)
[2020-02-26] MEDS: CefTRIAXone/D5W-Rocephin 1gm 50 ML IV SCH (08:15)
[2020-02-26] MEDS: insulin Lispro (HumaLOG) vial - multi-dose SQ SCH ×3 (08:35→19:58)
--- NOTE | 2020-02-26 10:18 | NUR ---
Initial: Pt presented with c/o SOB and admit with acute respiratory failure, COPD exacerbation, and CHF exacerbation. Pt currently on a heart healthy CHO controlled diet documented with average 75-100% PO intake while receiving double protein TID meeting nutrient needs. LBM 02/23, PRN bowel care available. No further nutrition intervention warranted at this time. Will continue to follow. Recommendations: 1) Continue heart healthy CHO controlled diet 2) Double eggs q breakfast (omelette or hard boiled only per pt request) with fruit, double meat BIDLD 3) Bowel care PRN; monitor need for additional 4) Scaled weights per rx Addendum: 02/26/20 at [address] Amended: Links added.
[2020-02-26 10:22] LABS: ANION GAP -1 (8-16); BLOOD UREA NITROGEN 38 MG/DL (7-18); CALCIUM 9.1 MG/DL (8.5-10.1); CHLORIDE 95 MMOL/L (99-107); CREATININE 0.76 MG/DL (0.40-0.90); GLUCOSE 119 MG/DL (70-104); MAGNESIUM 2.2 MG/DL (1.5-2.4); SODIUM 138 MMOL/L (135-145); eGFR 75 ML/MIN
[2020-02-26 10:23] LABS: TOTAL CARBON DIOXIDE 43.8 MMOL/L (24-32)
[2020-02-26] MEDS: K and/or MAG REPLACEMENT MC SCH ×2 (10:35→20:00)
[2020-02-26] MEDS ORDERED: potassium CL 10mEq/100ml bag 100 ML IV PRN (10:35)
[2020-02-26] MEDS ORDERED: magnesium Cl slow-release 64mg tablet PO PRN (10:35)
[2020-02-26] MEDS ORDERED: magnesium 4gm in 100ml NS 100 ML IV PRN (10:35)
[2020-02-26 11:00] VITALS: BP 96/48
[2020-02-26] MEDS: potassium Cl 20 mEq SR tablet PO PRN ×2 (12:33→16:17)
[2020-02-26 15:30] VITALS: BP 99/46
[2020-02-26 16:16] LABS: ALBUMIN 2.9 G/DL (3.4-5.0); ANION GAP 0 (8-16); BLOOD UREA NITROGEN 37 MG/DL (7-18); CALCIUM 9.2 MG/DL (8.5-10.1); CHLORIDE 96 MMOL/L (99-107); CREATININE 0.74 MG/DL (0.40-0.90); GLUCOSE 120 MG/DL (70-104); MAGNESIUM 2.5 MG/DL (1.5-2.4); PHOSPHORUS 4.6 MG/DL (2.3-4.5); SODIUM 137 MMOL/L (135-145); eGFR 77 ML/MIN
[2020-02-26 16:17] LABS: POTASSIUM 3.6 MMOL/L (3.5-5.1)
[2020-02-26 16:22] LABS: TOTAL CARBON DIOXIDE 40.7 MMOL/L (24-32)
--- NOTE | 2020-02-26 18:23 | NUR ---
Problems reprioritized. Patient report given, questions answered & plan of care reviewed with Ayla.
[2020-02-26 19:00] VITALS: BP 99/46
[2020-02-26] MEDS ORDERED: furosemide 40mg/4ml inj IV SCH (20:00)
[2020-02-26] MEDS: insulin glargine (Lantus) pen - multi-dose SQ SCH (21:00)
[2020-02-26 22:11] LABS: ALBUMIN 2.8 G/DL (3.4-5.0); ANION GAP 2 (8-16); BLOOD UREA NITROGEN 35 MG/DL (7-18); BUN/CREATININE RATIO 39.3 (6.6-38.0); CALCIUM 9.2 MG/DL (8.5-10.1); CHLORIDE 97 MMOL/L (99-107); CREATININE 0.89 MG/DL (0.40-0.90); GLUCOSE 170 MG/DL (70-104); MAGNESIUM 2.3 MG/DL (1.5-2.4); PHOSPHORUS 4.6 MG/DL (2.3-4.5); POTASSIUM 3.8 MMOL/L (3.5-5.1); SODIUM 138 MMOL/L (135-145); eGFR 62 ML/MIN
[2020-02-26] MEDS: LORazepam 1 MG tablet PO PRN (22:54)
[2020-02-26 23:00] VITALS: BP 99/46
[2020-02-27] MEDS: dicyclomine 10 MG capsule PO SCH ×4 (01:57→19:10)
[2020-02-27] MEDS: ipratropium/albuterol 3ml nebule NEB SCH ×6 (03:34→23:43)
[2020-02-27 04:00] VITALS: BP 122/68
[2020-02-27 05:34] LABS: ALBUMIN 2.8 G/DL (3.4-5.0); ANION GAP 0 (8-16); BLOOD UREA NITROGEN 30 MG/DL (7-18); BUN/CREATININE RATIO 42.3 (6.6-38.0); CALCIUM 9.1 MG/DL (8.5-10.1); CHLORIDE 99 MMOL/L (99-107); CREATININE 0.71 MG/DL (0.40-0.90); GLUCOSE 160 MG/DL (70-104); MAGNESIUM 2.2 MG/DL (1.5-2.4); PHOSPHORUS 3.9 MG/DL (2.3-4.5); POTASSIUM 3.7 MMOL/L (3.5-5.1); SODIUM 137 MMOL/L (135-145); TOTAL CARBON DIOXIDE 37.9 MMOL/L (24-32); eGFR 81 ML/MIN
--- NOTE | 2020-02-27 06:00 | NUR ---
Patient in room PCU 3025. I have received report from Ayla VALDERRAMA and had the opportunity to ask questions and assume patient care. Patient was off Bipap and wick was not working properly, will get the pt changed and monitor closely. Bedside report complete.
[2020-02-27 06:30] VITALS: BP 111/54
[2020-02-27] MEDS ORDERED: furosemide 40mg/4ml inj IV SCH (08:00)
[2020-02-27] MEDS: heparin, porcine 5000 units/ml vial SQ SCH ×2 (08:00→19:10)
[2020-02-27] MEDS: K and/or MAG REPLACEMENT MC SCH ×2 (08:00→19:11)
[2020-02-27] MEDS: levoTHYROXINE 25mcg tablet PO SCH (09:06)
[2020-02-27] MEDS: pantoprazole 40mg Tablet.DR PO SCH (09:07)
[2020-02-27] MEDS: CefTRIAXone/D5W-Rocephin 1gm 50 ML IV SCH (09:09)
[2020-02-27] MEDS: losartan 25mg tablet PO SCH (09:12)
[2020-02-27] MEDS: lactobacillus rhamnosus 10,000 MMU CELLS/CAPSULE PO SCH ×2 (09:12→19:10)
[2020-02-27] MEDS: acetaZOLAMIDE 250mg tablet PO SCH ×2 (09:14→19:10)
[2020-02-27] MEDS: aspirin 81mg tablet.DR PO SCH (09:14)
[2020-02-27] MEDS: atorvastatin 20mg tablet PO SCH (09:15)
[2020-02-27] MEDS: linagliptin 5mg tablet PO SCH (09:16)
[2020-02-27] MEDS: predniSONE 20 mg tablet PO SCH (09:16)
[2020-02-27] MEDS: azithromycin 250mg tablet PO SCH (09:17)
[2020-02-27] MEDS: nicotine 14mg patch - 24hr TD SCH (09:18)
[2020-02-27] MEDS: NYSTATIN CREAM - 30GM TUBE TP SCH ×2 (09:19→19:20)
[2020-02-27] MEDS: benzocaine/menthol oral lozeng 1 EACH BOX MM PRN ×5 (09:19→22:02)
[2020-02-27 09:48] LABS: ALBUMIN 2.8 G/DL (3.4-5.0); ANION GAP 3 (8-16); BLOOD UREA NITROGEN 25 MG/DL (7-18); BUN/CREATININE RATIO 39.1 (6.6-38.0); CALCIUM 8.9 MG/DL (8.5-10.1); CHLORIDE 99 MMOL/L (99-107); CREATININE 0.64 MG/DL (0.40-0.90); GLUCOSE 178 MG/DL (70-104); MAGNESIUM 2.1 MG/DL (1.5-2.4); PHOSPHORUS 3.5 MG/DL (2.3-4.5); POTASSIUM 3.7 MMOL/L (3.5-5.1); SODIUM 138 MMOL/L (135-145); TOTAL CARBON DIOXIDE 35.7 MMOL/L (24-32); eGFR > 90 ML/MIN
[2020-02-27 09:49] LABS: BASOPHILS % (AUTO) 0.4 % (0-1); EOSINOPHILS # (AUTO) 0.1 X10'3 (0-0.9); EOSINOPHILS % (AUTO) 0.7 % (0-6); HEMATOCRIT 34.3 % (35.0-45.0); HEMOGLOBIN 10.4 g/dl (12.0-16.0); LYMPHOCYTES # (AUTO) 1.7 X10'3 (1.1-4.8); LYMPHOCYTES % (AUTO) 19.8 % (21-51); MEAN CORPUSCULAR HEMOGLOBIN 25.2 PG (27.0-31.0); MEAN CORPUSCULAR HGB CONC 30.5 g/dL (33.0-36.5); MEAN CORPUSCULAR VOLUME 82.6 FL (78-98); MONOCYTES # (AUTO) 0.4 X10'3 (0-0.9); MONOCYTES % (AUTO) 4.3 % (2-12); NEUTROPHILS # (AUTO) 6.4 X10'3 (1.8-7.7); NEUTROPHILS % (AUTO) 74.8 % (42-75); PLATELET COUNT 415 X10'3 (140-440); RED BLOOD COUNT 4.15 X10'6 (4.20-5.60); RED CELL DISTRIBUTION WIDTH 16.7 % (11.5-14.5); WHITE BLOOD COUNT 8.5 X10'3 (4.5-11.0)
[2020-02-27] MEDS: HYDROcodone/acetaminophen 5mg/325mg tablet PO PRN ×3 (10:48→17:23)
[2020-02-27 11:00] VITALS: BP 137/50
[2020-02-27 12:16] LABS: ABG BASE EXCESS 9.2 mmol/L (-2.0-2.0); ABG HCO3 38.4 mmol/L (22.0-26.0); ABG OXYGEN SATURATION 91.2 % (94-97); ABG PCO2 (T) 82.6 mmHg (32.0-45.0); ABG PO2 (T) 69.2 mmHg (75.0-100.0); ALLEN'S TEST POSITIVE; FCOHb 0.9 % (0.0-3.9); FLOW 10 L/min; FMetHb 0.1 % (0.0-1.5); FO2Hb 90.3 % (94-97); TOTAL HEMOGLOBIN 10.9 G/dl (12.0-16.0)
[2020-02-27] MEDS: LORazepam 1 MG tablet PO PRN ×2 (13:04→22:03)
--- NOTE | 2020-02-27 13:13 | NUR ---
Rm [id number] Marilynn, Pt. complaining that air from bipap is to hot, please come assess. Thanks
[2020-02-27] MEDS: insulin Lispro (HumaLOG) vial - multi-dose SQ SCH ×2 (13:48→19:09)
[2020-02-27 15:00] VITALS: BP 103/45
[2020-02-27 16:57] LABS: ALBUMIN 2.8 G/DL (3.4-5.0); ANION GAP 5 (8-16); BLOOD UREA NITROGEN 25 MG/DL (7-18); BUN/CREATININE RATIO 28.4 (6.6-38.0); CALCIUM 8.7 MG/DL (8.5-10.1); CHLORIDE 99 MMOL/L (99-107); CREATININE 0.88 MG/DL (0.40-0.90); GLUCOSE 210 MG/DL (70-104); MAGNESIUM 2.1 MG/DL (1.5-2.4); PHOSPHORUS 3.7 MG/DL (2.3-4.5); POTASSIUM 3.8 MMOL/L (3.5-5.1); SODIUM 137 MMOL/L (135-145); TOTAL CARBON DIOXIDE 33.3 MMOL/L (24-32); eGFR 63 ML/MIN
[2020-02-27 17:10] LABS: ABG BASE EXCESS 7.7 mmol/L (-2.0-2.0); ABG HCO3 35.4 mmol/L (22.0-26.0); ABG OXYGEN SATURATION 93.5 % (94-97); ABG PO2 (T) 75.3 mmHg (75.0-100.0); ALLEN'S TEST POSITIVE; FCOHb 1.1 % (0.0-3.9); FO2Hb 92.5 % (94-97); RESPIRATORY RATE 18 b/min; TOTAL HEMOGLOBIN 10.9 G/dl (12.0-16.0)
[2020-02-27] MEDS: furosemide 40mg/4ml inj IV SCH (17:21)
[2020-02-27 18:00] VITALS: BP 114/54
--- NOTE | 2020-02-27 18:17 | NUR ---
Orientee documentation: I have reviewed and agree with interventions, assessments performed and documented by Faviola VALDERRAMA.Orientee Medication Administration: For this medication-pass time frame, all medication were reviewed, dispensed, administered and documented per hospital policy by Faviola VALDERRAMA .
--- NOTE | 2020-02-27 18:30 | NUR ---
Patient in room PCU 3025. I have received report from HADLEY VALDERRAMA and had the opportunity to ask questions and assume patient care.
--- NOTE | 2020-02-27 18:38 | NUR ---
Problems reprioritized. Patient report given, questions answered & plan of care reviewed with Ximena VALDERRAMA. Patient stable at transfer of care, on Bipap.
[2020-02-27 21:51] LABS: ALBUMIN 2.8 G/DL (3.4-5.0); ANION GAP 2 (8-16); BLOOD UREA NITROGEN 27 MG/DL (7-18); CHLORIDE 99 MMOL/L (99-107); GLUCOSE 250 MG/DL (70-104); MAGNESIUM 2.1 MG/DL (1.5-2.4); PHOSPHORUS 3.6 MG/DL (2.3-4.5); POTASSIUM 3.6 MMOL/L (3.5-5.1); SODIUM 137 MMOL/L (135-145); TOTAL CARBON DIOXIDE 35.6 MMOL/L (24-32); eGFR 62 ML/MIN
[2020-02-27 22:00] VITALS: BP 111/51
[2020-02-27] MEDS: HYDROcodone/acetaminophen 10/325mg tab PO PRN (22:02)
[2020-02-27] MEDS: insulin glargine (Lantus) pen - multi-dose SQ SCH (22:02)
[2020-02-28 02:00] VITALS: BP 114/50
[2020-02-28] MEDS: dicyclomine 10 MG capsule PO SCH ×4 (02:00→20:05)
[2020-02-28] MEDS: ipratropium/albuterol 3ml nebule NEB SCH ×7 (03:00→23:12)
[2020-02-28 05:23] LABS: ALBUMIN 2.7 G/DL (3.4-5.0); ANION GAP 4 (8-16); BLOOD UREA NITROGEN 26 MG/DL (7-18); BUN/CREATININE RATIO 37.1 (6.6-38.0); CALCIUM 8.9 MG/DL (8.5-10.1); CHLORIDE 100 MMOL/L (99-107); GLUCOSE 158 MG/DL (70-104); MAGNESIUM 2.1 MG/DL (1.5-2.4); PHOSPHORUS 3.8 MG/DL (2.3-4.5); POTASSIUM 3.7 MMOL/L (3.5-5.1); SODIUM 139 MMOL/L (135-145); TOTAL CARBON DIOXIDE 35.4 MMOL/L (24-32); eGFR 82 ML/MIN
--- NOTE | 2020-02-28 06:00 | NUR ---
Problems reprioritized. Patient report given, questions answered & plan of care reviewed with Ирина VALDERRAMA. Patient stable at transfer of care.
--- NOTE | 2020-02-28 06:06 | NUR ---
Problems reprioritized. Patient report given, questions answered & plan of care reviewed with HADLEY VALDERRAMA.
[2020-02-28] MEDS: levoTHYROXINE 25mcg tablet PO SCH (07:36)
[2020-02-28] MEDS: pantoprazole 40mg Tablet.DR PO SCH (07:37)
[2020-02-28] MEDS: furosemide 40mg/4ml inj IV SCH ×2 (07:37→20:05)
[2020-02-28] MEDS: CefTRIAXone/D5W-Rocephin 1gm 50 ML IV SCH (07:40)
[2020-02-28] MEDS: losartan 25mg tablet PO SCH (07:44)
[2020-02-28] MEDS: lactobacillus rhamnosus 10,000 MMU CELLS/CAPSULE PO SCH ×2 (07:44→20:05)
[2020-02-28] MEDS: acetaZOLAMIDE 250mg tablet PO SCH (07:44)
[2020-02-28] MEDS: aspirin 81mg tablet.DR PO SCH (07:45)
[2020-02-28] MEDS: linagliptin 5mg tablet PO SCH (07:46)
[2020-02-28] MEDS: azithromycin 250mg tablet PO SCH (07:47)
[2020-02-28] MEDS: nicotine 14mg patch - 24hr TD SCH (07:50)
[2020-02-28] MEDS: NYSTATIN CREAM - 30GM TUBE TP SCH ×2 (07:51→19:30)
[2020-02-28] MEDS: atorvastatin 20mg tablet PO SCH (07:52)
[2020-02-28] MEDS: heparin, porcine 5000 units/ml vial SQ SCH ×2 (08:00→20:17)
[2020-02-28] MEDS: K and/or MAG REPLACEMENT MC SCH ×2 (08:00→20:00)
[2020-02-28] MEDS: predniSONE 20 mg tablet PO SCH (08:00)
[2020-02-28] MEDS: insulin Lispro (HumaLOG) vial - multi-dose SQ SCH ×3 (08:11→18:49)
[2020-02-28] MEDS: HYDROcodone/acetaminophen 5mg/325mg tablet PO PRN ×2 (08:12→19:30)
[2020-02-28 08:18] VITALS: BP 146/64
[2020-02-28 08:19] LABS: BASOPHILS # (AUTO) 0.1 X10'3 (0-0.2); BASOPHILS % (AUTO) 0.7 % (0-1); EOSINOPHILS # (AUTO) 0.1 X10'3 (0-0.9); EOSINOPHILS % (AUTO) 0.7 % (0-6); HEMATOCRIT 31.8 % (35.0-45.0); HEMOGLOBIN 9.9 g/dl (12.0-16.0); LYMPHOCYTES # (AUTO) 2.1 X10'3 (1.1-4.8); LYMPHOCYTES % (AUTO) 23.7 % (21-51); MEAN CORPUSCULAR HEMOGLOBIN 25.9 PG (27.0-31.0); MEAN CORPUSCULAR HGB CONC 31.2 g/dL (33.0-36.5); MEAN CORPUSCULAR VOLUME 83.1 FL (78-98); MEAN PLATELET VOLUME 7.4 FL (7.4-10.4); MONOCYTES # (AUTO) 0.5 X10'3 (0-0.9); MONOCYTES % (AUTO) 5.1 % (2-12); NEUTROPHILS # (AUTO) 6.3 X10'3 (1.8-7.7); NEUTROPHILS % (AUTO) 69.8 % (42-75); PLATELET COUNT 380 X10'3 (140-440); RED BLOOD COUNT 3.83 X10'6 (4.20-5.60); RED CELL DISTRIBUTION WIDTH 16.8 % (11.5-14.5)
[2020-02-28 10:13] LABS: ALBUMIN 2.8 G/DL (3.4-5.0); ANION GAP 3 (8-16); BLOOD UREA NITROGEN 25 MG/DL (7-18); BUN/CREATININE RATIO 36.2 (6.6-38.0); CALCIUM 8.9 MG/DL (8.5-10.1); CHLORIDE 100 MMOL/L (99-107); CREATININE 0.69 MG/DL (0.40-0.90); GLUCOSE 187 MG/DL (70-104); PHOSPHORUS 3.2 MG/DL (2.3-4.5); POTASSIUM 3.6 MMOL/L (3.5-5.1); SODIUM 138 MMOL/L (135-145); TOTAL CARBON DIOXIDE 35.1 MMOL/L (24-32); eGFR 84 ML/MIN
--- NOTE | 2020-02-28 10:41 | NUR ---
Rm [id number],Marilynn. New ABG order in, Please come obtain, Thank you
[2020-02-28 11:00] VITALS: BP 99/42
[2020-02-28 11:15] LABS: ABG BASE EXCESS 8.4 mmol/L (-2.0-2.0); ABG HCO3 36.4 mmol/L (22.0-26.0); ABG OXYGEN SATURATION 95.4 % (94-97); ABG PCO2 (T) 71.3 mmHg (32.0-45.0); ABG PO2 (T) 80.4 mmHg (75.0-100.0); ALLEN'S TEST POSITIVE; FCOHb 1.3 % (0.0-3.9); FO2Hb 94.2 % (94-97); RESPIRATORY RATE 18 b/min; TOTAL HEMOGLOBIN 10.8 G/dl (12.0-16.0)
--- NOTE | 2020-02-28 13:08 | NUR ---
Patient in room PCU 3025. I have received report from Abby VALDERRAMA and had the opportunity to ask questions and assume patient care.
[2020-02-28] MEDS ORDERED: potassium CL 10mEq/100ml bag 100 ML IV PRN (14:15)
[2020-02-28] MEDS: potassium Cl 20 mEq SR tablet PO PRN (14:30)
[2020-02-28 15:00] VITALS: BP 131/58
[2020-02-28 16:08] LABS: ALBUMIN 2.7 G/DL (3.4-5.0); ANION GAP 1 (8-16); BLOOD UREA NITROGEN 24 MG/DL (7-18); BUN/CREATININE RATIO 31.6 (6.6-38.0); CALCIUM 8.6 MG/DL (8.5-10.1); CHLORIDE 101 MMOL/L (99-107); CREATININE 0.76 MG/DL (0.40-0.90); GLUCOSE 131 MG/DL (70-104); PHOSPHORUS 3.6 MG/DL (2.3-4.5); POTASSIUM 3.6 MMOL/L (3.5-5.1); SODIUM 138 MMOL/L (135-145); eGFR 75 ML/MIN
[2020-02-28 18:00] VITALS: BP 94/51
--- NOTE | 2020-02-28 18:30 | NUR ---
Patient in room PCU 3025. I have received report from LAVELLE Gifford and had the opportunity to ask questions and assume patient care.
--- NOTE | 2020-02-28 18:35 | NUR ---
Problems reprioritized. Patient report given, questions answered & plan of care reviewed with Shantal VALDERRAMA.
[2020-02-28] MEDS: insulin glargine (Lantus) pen - multi-dose SQ SCH (21:44)
[2020-02-28 22:00] VITALS: BP 123/53
[2020-02-28 23:01] LABS: ALBUMIN 3.1 G/DL (3.4-5.0); ANION GAP 5 (8-16); BLOOD UREA NITROGEN 23 MG/DL (7-18); BUN/CREATININE RATIO 31.1 (6.6-38.0); CHLORIDE 99 MMOL/L (99-107); CREATININE 0.74 MG/DL (0.40-0.90); GLUCOSE 184 MG/DL (70-104); PHOSPHORUS 3.7 MG/DL (2.3-4.5); POTASSIUM 3.8 MMOL/L (3.5-5.1); SODIUM 138 MMOL/L (135-145); TOTAL CARBON DIOXIDE 34.4 MMOL/L (24-32); eGFR 77 ML/MIN
[2020-02-29] MEDS: dicyclomine 10 MG capsule PO SCH ×2 (02:00→08:45)
[2020-02-29 02:13] VITALS: BP 140/73
--- NOTE | 2020-02-29 02:34 | NUR ---
Patient refused Bentyl. Opened package before refusal, will waste med.
[2020-02-29] MEDS: HYDROcodone/acetaminophen 5mg/325mg tablet PO PRN (03:02)
--- NOTE | 2020-02-29 03:14 | NUR ---
Patient woke up in pain requesting pain medication. Perianal care performed, dry flows changed, barrier cream applied. Educated patient on use of Bipap but she is continuing to refuse.
[2020-02-29] MEDS: ipratropium/albuterol 3ml nebule NEB SCH ×3 (03:53→11:07)
--- NOTE | 2020-02-29 06:10 | NUR ---
Problems reprioritized. Patient report given, questions answered & plan of care reviewed with LAVELLE Bishop.
--- NOTE | 2020-02-29 06:19 | NUR ---
Patient in room PCU 3025B. I have received report from Shantal VALDERRAMA and had the opportunity to ask questions and assume patient care.
--- NOTE | 2020-02-29 06:22 | NUR ---
Patient in room PCU 3025. I have received report from Shantal VALDERRAMA and had the opportunity to ask questions and assume patient care. Patient was resting comfortably during report and no acute distress noted.
[2020-02-29 06:30] VITALS: BP 108/47
[2020-02-29 06:40] LABS: ALBUMIN 2.8 G/DL (3.4-5.0); ANION GAP 3 (8-16); BLOOD UREA NITROGEN 20 MG/DL (7-18); BUN/CREATININE RATIO 30.8 (6.6-38.0); CALCIUM 8.4 MG/DL (8.5-10.1); CHLORIDE 102 MMOL/L (99-107); CREATININE 0.65 MG/DL (0.40-0.90); GLUCOSE 187 MG/DL (70-104); MAGNESIUM 1.9 MG/DL (1.5-2.4); PHOSPHORUS 3.5 MG/DL (2.3-4.5); POTASSIUM 3.7 MMOL/L (3.5-5.1); SODIUM 139 MMOL/L (135-145); TOTAL CARBON DIOXIDE 33.8 MMOL/L (24-32); eGFR 90 ML/MIN
[2020-02-29] MEDS: benzocaine/menthol oral lozeng 1 EACH BOX MM PRN (07:37)
[2020-02-29 07:47] LABS: BASOPHILS % (AUTO) 0.2 % (0-1); EOSINOPHILS # (AUTO) 0.1 X10'3 (0-0.9); EOSINOPHILS % (AUTO) 1.2 % (0-6); HEMATOCRIT 32.7 % (35.0-45.0); LYMPHOCYTES # (AUTO) 1.9 X10'3 (1.1-4.8); LYMPHOCYTES % (AUTO) 19.3 % (21-51); MEAN CORPUSCULAR HEMOGLOBIN 25.1 PG (27.0-31.0); MEAN CORPUSCULAR HGB CONC 30.7 g/dL (33.0-36.5); MEAN PLATELET VOLUME 7.2 FL (7.4-10.4); MONOCYTES # (AUTO) 0.4 X10'3 (0-0.9); MONOCYTES % (AUTO) 4.3 % (2-12); NEUTROPHILS # (AUTO) 7.4 X10'3 (1.8-7.7); PLATELET COUNT 399 X10'3 (140-440); RED BLOOD COUNT 3.99 X10'6 (4.20-5.60); RED CELL DISTRIBUTION WIDTH 16.5 % (11.5-14.5); WHITE BLOOD COUNT 9.9 X10'3 (4.5-11.0)
[2020-02-29] MEDS: predniSONE 20 mg tablet PO SCH (08:00)
[2020-02-29] MEDS: K and/or MAG REPLACEMENT MC SCH (08:00)
[2020-02-29] MEDS: furosemide 40mg/4ml inj IV SCH (08:43)
[2020-02-29] MEDS: nicotine 14mg patch - 24hr TD SCH (08:44)
[2020-02-29] MEDS: lactobacillus rhamnosus 10,000 MMU CELLS/CAPSULE PO SCH (08:45)
[2020-02-29] MEDS: levoTHYROXINE 25mcg tablet PO SCH (08:45)
[2020-02-29] MEDS: potassium Cl 20 mEq SR tablet PO PRN (08:45)
[2020-02-29] MEDS: azithromycin 250mg tablet PO SCH (08:45)
[2020-02-29] MEDS: aspirin 81mg tablet.DR PO SCH (08:46)
[2020-02-29] MEDS: linagliptin 5mg tablet PO SCH (08:46)
[2020-02-29] MEDS: losartan 25mg tablet PO SCH (08:46)
[2020-02-29] MEDS: atorvastatin 20mg tablet PO SCH (08:47)
[2020-02-29] MEDS: pantoprazole 40mg Tablet.DR PO SCH (08:47)
[2020-02-29] MEDS: CefTRIAXone/D5W-Rocephin 1gm 50 ML IV SCH (08:47)
[2020-02-29] MEDS: heparin, porcine 5000 units/ml vial SQ SCH (08:48)
[2020-02-29] MEDS: NYSTATIN CREAM - 30GM TUBE TP SCH (08:49)
[2020-02-29] MEDS: insulin Lispro (HumaLOG) vial - multi-dose SQ SCH (09:28)
--- NOTE | 2020-02-29 10:19 | NUR ---
Carlin PHILLIPS PAGER ID: [phone] MESSAGE: Edna GRANDE. RE [id number], Marilynn. RADHA case management that patient will be taken to LTAC at 1300
[2020-02-29 10:29] LABS: ANION GAP 5 (8-16); BLOOD UREA NITROGEN 19 MG/DL (7-18); BUN/CREATININE RATIO 26.4 (6.6-38.0); CALCIUM 8.9 MG/DL (8.5-10.1); CHLORIDE 100 MMOL/L (99-107); CREATININE 0.72 MG/DL (0.40-0.90); GLUCOSE 273 MG/DL (70-104); MAGNESIUM 1.9 MG/DL (1.5-2.4); PHOSPHORUS 3.3 MG/DL (2.3-4.5); POTASSIUM 4.2 MMOL/L (3.5-5.1); SODIUM 138 MMOL/L (135-145); TOTAL CARBON DIOXIDE 32.8 MMOL/L (24-32); eGFR 80 ML/MIN
[2020-02-29 11:00] VITALS: BP 98/40
--- NOTE | 2020-02-29 13:15 | NUR ---
Patient was discharged to LTAC in stable condition. She was transported by [facility]. Tele and PIV were removed. All belongings and transfer packet sent with patient. Patient's home medication was retrieved from pharmacy and also sent with patient. Called report to Arminda VALDERRAMA at [facility].
== END 2020-02-29 13:15 | DRG 291 ==
LOC: ER 16:57 → ED HOLD 19:40 → PCU 3S 21:15
PROVIDERS: ADMIT Family Medicine; ATTEND Family Medicine
PROC: 5A09357 Assistance with Respiratory Ventilation, Less than 24 Consecutive Hours, Continuous Positive Airway Pressure (ICD-10-PCS; principal; 2020-02-24)
PROC: 5A09357 Assistance with Respiratory Ventilation, Less than 24 Consecutive Hours, Continuous Positive Airway Pressure (ICD-10-PCS; 2020-02-25)
PROC: 5A09357 Assistance with Respiratory Ventilation, Less than 24 Consecutive Hours, Continuous Positive Airway Pressure (ICD-10-PCS; 2020-02-26)
PROC: 5A09357 Assistance with Respiratory Ventilation, Less than 24 Consecutive Hours, Continuous Positive Airway Pressure (ICD-10-PCS; 2020-02-27)
PROC: 5A09357 Assistance with Respiratory Ventilation, Less than 24 Consecutive Hours, Continuous Positive Airway Pressure (ICD-10-PCS; 2020-02-28)
DX: I11.0 Hypertensive heart disease with heart failure (principal); J96.01 Acute respiratory failure with hypoxia; J96.02 Acute respiratory failure with hypercapnia; J44.1 Chronic obstructive pulmonary disease with (acute) exacerbation; E87.2 Acidosis; Z68.41 Body mass index [BMI] 40.0-44.9, adult; I50.33 Acute on chronic diastolic (congestive) heart failure; I05.0 Rheumatic mitral stenosis; E66.01 Morbid (severe) obesity due to excess calories; I27.29 Other secondary pulmonary hypertension; F17.210 Nicotine dependence, cigarettes, uncomplicated; E78.5 Hyperlipidemia, unspecified; E03.9 Hypothyroidism, unspecified; M19.90 Unspecified osteoarthritis, unspecified site; D64.9 Anemia, unspecified; E11.9 Type 2 diabetes mellitus without complications; E78.00 Pure hypercholesterolemia, unspecified; F41.9 Anxiety disorder, unspecified; G47.33 Obstructive sleep apnea (adult) (pediatric); I27.21 Secondary pulmonary arterial hypertension; I50.82 Biventricular heart failure; Z79.84 Long term (current) use of oral hypoglycemic drugs; Z79.890 Hormone replacement therapy; Z20.828 Contact with and (suspected) exposure to other viral communicable diseases
CPT/HCPCS: 36415; 36600; 71045; 76937; 80048; 80053; 80069; 82803; 82948; 83036; 83735; 83880; 84443; 84484; 85018; 85025; 87081; 87635; 93005; 93306; 94640; 94660; 94760; 96365; 96367; 96375; 97116; 97161; 97530; 97535; 99285; G0378; J0456; J0696; J1644; J1815; J1940; J2920; J2930; J7050; J7512; Q0163

== ENCOUNTER 2021-09-03 17:56 | Inpatient (IN) | payer MEDICARE, MEDICAID ==
[~2021-09-03] VITALS: Ht 160 cm; Wt 118.2 kg
[~2021-09-03 17:56] MED LIST changes: +ALBU18HF2 INH; -ATI1T PO; +CALC667T6 PO; -DICY10CA88 PO; +DOCU100C40 PO; -FURO-150 PO; -IBUP-1984 PO; -IPRA3AMP9 NEB; -LOSA25TA41 PO; +MAGN400T29 PO; -MAGN500T2 PO; +MULT1TAB71 PO; -NICO-631 TD; -PANT40TA4 PO; +PANT40TA54 PO; +POTA-197 PO
[2021-09-03] MEDS ORDERED: ipratropium/albuterol 3ml nebule NEB ONE (18:05)
[2021-09-03] MEDS ORDERED: furosemide 10 MG/1 ML 10ml inj IV ONE (18:05)
[2021-09-03 18:34] LABS: BASOPHILS % (AUTO) 0.2 % (0-1); EOSINOPHILS % (AUTO) 0.3 % (0-6); HEMATOCRIT 40.3 % (35.0-45.0); HEMOGLOBIN 13.7 g/dl (12.0-16.0); LYMPHOCYTES # (AUTO) 1.5 X10'3 (1.1-4.8); LYMPHOCYTES % (AUTO) 17.3 % (21-51); MEAN CORPUSCULAR HEMOGLOBIN 30.5 PG (27.0-31.0); MEAN CORPUSCULAR VOLUME 89.9 FL (78-98); MONOCYTES # (AUTO) 0.5 X10'3 (0-0.9); MONOCYTES % (AUTO) 5.7 % (2-12); NEUTROPHILS # (AUTO) 6.6 X10'3 (1.8-7.7); NEUTROPHILS % (AUTO) 76.5 % (42-75); PLATELET COUNT 259 X10'3 (140-440); RED BLOOD COUNT 4.48 X10'6 (4.20-5.60); WHITE BLOOD COUNT 8.7 X10'3 (4.5-11.0)
[2021-09-03 18:48] LABS: APTT 31 SECONDS (22-32); D-DIMER 1.26 MG/L FEU (0-0.50)
[2021-09-03 19:05] LABS: ALANINE AMINOTRANSFERASE 19 U/L (12-78); ALBUMIN 2.8 G/DL (3.4-5.0); ALBUMIN/GLOBULIN RATIO 0.5 (1.1-1.5); ALKALINE PHOSPHATASE 156 IU/L (46-116); ANION GAP 6 (8-16); ASPARTATE AMINO TRANSFERASE 25 U/L (10-37); BILIRUBIN,TOTAL 0.8 MG/DL (0.1-1.0); BLOOD UREA NITROGEN 10 MG/DL (7-18); BUN/CREATININE RATIO 20.4 (6.6-38.0); CALCIUM 8.5 MG/DL (8.5-10.1); CHLORIDE 101 MMOL/L (99-107); CREATININE 0.49 MG/DL (0.40-0.90); GLUCOSE 130 MG/DL (70-104); POTASSIUM 3.5 MMOL/L (3.5-5.1); SODIUM 141 MMOL/L (135-145); TOTAL CARBON DIOXIDE 33.7 MMOL/L (24-32); TOTAL PROTEIN 8.1 G/DL (6.4-8.2); eGFR > 90 ML/MIN
[2021-09-03] MEDS ORDERED: iohexol 350MG/ML 100ml bottle IV ONE (19:47)
[2021-09-03] MEDS ORDERED: temazepam 15mg capsule PO PRN (21:00)
[2021-09-03 21:10] LABS: ABG BASE EXCESS 6.4 mmol/L (-2.0-2.0); ABG HCO3 32.2 mmol/L (22.0-26.0); ABG OXYGEN SATURATION 94.2 % (94-97); ABG PCO2 (T) 49.8 mmHg (32.0-45.0); ABG PO2 (T) 68.5 mmHg (75.0-100.0); FCOHb 1.4 % (0.0-3.9); FLOW 6 L/min; FMetHb 0.3 % (0.0-1.5); FO2Hb 92.6 % (94-97); PATIENT TEMPERATURE 36.7; TOTAL HEMOGLOBIN 14.6 G/dl (12.0-16.0)
[2021-09-03] MEDS ORDERED: REMDESIVIR INJ 200 MG in normal saline 100ml IV soln 100 ML IV ONE (21:35)
[2021-09-03] MEDS ORDERED: mag hydrox/Alum hydrox/simeth 30ml oral suspension PO PRN ×2 (22:15→22:20)
[2021-09-03] MEDS ORDERED: potassium CL 10mEq/100ml bag 100 ML IV PRN (22:15)
[2021-09-03] MEDS ORDERED: magnesium hydroxide 30ml (MOM) UD suspension PO PRN ×2 (22:15→22:20)
[2021-09-03] MEDS ORDERED: magnesium Cl slow-release 64mg tablet PO PRN (22:15)
[2021-09-03] MEDS ORDERED: ondansetron/PF 4mg/2ml inj IV PRN ×2 (22:15→22:20)
[2021-09-03] MEDS ORDERED: magnesium 2GM in 50ml NS 50 ML IV PRN (22:15)
[2021-09-03] MEDS ORDERED: magnesium 4gm in 100ml NS 100 ML IV PRN (22:15)
[2021-09-03] MEDS ORDERED: potassium Cl 20 mEq SR tablet PO PRN ×2 (22:15)
[2021-09-03] MEDS ORDERED: acetaminophen 325mg tablet PO PRN ×3 (22:15→22:20)
[2021-09-03] MEDS ORDERED: acetaminophen 650mg rectal suppository RC PRN (22:20)
[2021-09-03] MEDS ORDERED: bisacodyl 10mg suppository rectal RC PRN (22:20)
[2021-09-03] MEDS ORDERED: ondansetron 4mg rapidly disintigrating tab PO PRN (22:20)
[2021-09-03] MEDS ORDERED: diphenhydrAMINE 50 mg/ml inj IV PRN (22:20)
[2021-09-03] MEDS ORDERED: morphine 2 MG/ML inj. syringe IV PRN ×2 (22:20)
[2021-09-03] MEDS ORDERED: glucagon, human recombinant 1mg kit SUBCUT PRN (22:25)
[2021-09-03] MEDS ORDERED: ALBUTEROL INHALER 1 PUFF/90 MCG INHALER IH PRN (22:25)
[2021-09-03] MEDS ORDERED: dextrose ORAL solution 15 GM/59 ML bottle PO PRN ×2 (22:25)
[2021-09-03] MEDS ORDERED: MESSAGE TO PHARMACY PO ONE (22:25)
[2021-09-03] MEDS ORDERED: dextrose 50%-water 50ml dispensing syringe IV PRN ×2 (22:25)
[2021-09-03 22:28] LABS: MAGNESIUM 1.5 MG/DL (1.5-2.4); POTASSIUM 3.2 MMOL/L (3.5-5.1)
[2021-09-03 22:47] LABS: PHOSPHORUS 3.4 MG/DL (2.3-4.5)
[2021-09-03 22:55] LABS: HEMOGLOBIN A1C 6.8 % (4.5-6.2)
[2021-09-03 22:58] LABS: APTT 32 SECONDS (22-32)
[2021-09-04 00:30] VITALS: BP 147/50
[2021-09-04] MEDS ORDERED: LOSA25TA41 PO (00:33)
[2021-09-04] MEDS ORDERED: FURO-150 PO (00:33)
[2021-09-04] MEDS ORDERED: HYDR-3973 PO (00:33)
[2021-09-04] MEDS ORDERED: DICY10CA88 PO (00:33)
[2021-09-04] MEDS: diphenhydrAMINE 25mg capsule PO PRN ×3 (00:49→18:34)
[2021-09-04] MEDS: HYDROcodone/acetaminophen 5mg/325mg tablet PO PRN ×3 (00:52→18:34)
[2021-09-04 06:00] VITALS: BP 87/57
[2021-09-04] MEDS ORDERED: ALBUTEROL INHALER 1 PUFF/90 MCG INHALER IH PRN (06:30)
[2021-09-04 07:35] LABS: BASOPHILS % (AUTO) 0.2 % (0-1); EOSINOPHILS # (AUTO) 0.1 X10'3 (0-0.9); EOSINOPHILS % (AUTO) 0.6 % (0-6); HEMATOCRIT 39.4 % (35.0-45.0); HEMOGLOBIN 13.4 g/dl (12.0-16.0); LYMPHOCYTES # (AUTO) 2.6 X10'3 (1.1-4.8); LYMPHOCYTES % (AUTO) 30.5 % (21-51); MEAN CORPUSCULAR HEMOGLOBIN 30.7 PG (27.0-31.0); MEAN CORPUSCULAR HGB CONC 33.9 g/dL (33.0-36.5); MEAN CORPUSCULAR VOLUME 90.3 FL (78-98); MEAN PLATELET VOLUME 7.9 FL (7.4-10.4); MONOCYTES # (AUTO) 0.6 X10'3 (0-0.9); MONOCYTES % (AUTO) 7.7 % (2-12); NEUTROPHILS # (AUTO) 5.1 X10'3 (1.8-7.7); PLATELET COUNT 292 X10'3 (140-440); RED BLOOD COUNT 4.37 X10'6 (4.20-5.60); WHITE BLOOD COUNT 8.4 X10'3 (4.5-11.0)
--- NOTE | 2021-09-04 07:36 | NUR ---
Diabetes Consult: noted Pt w/ hx of T2DM, A1c 6.8 fair control DM ed not warranted at this time. Addendum: 09/04/21 at [address] Amended: Links added.
[2021-09-04] MEDS: dexamethasone 4mg/ml inj IV SCH ×2 (08:00→20:04)
[2021-09-04] MEDS: K and/or MAG REPLACEMENT MC SCH ×2 (08:00→19:27)
[2021-09-04] MEDS ORDERED: nicotine 21mg patch - 24 hr TD SCH (08:00)
[2021-09-04] MEDS ORDERED: REMDESIVIR INJ 100 MG in normal saline 100ml IV soln 100 ML IV SCH (08:00)
[2021-09-04] MEDS: docusate sod 100mg capsule PO SCH ×4 (08:00→20:05)
[2021-09-04 08:13] LABS: ALANINE AMINOTRANSFERASE 19 U/L (12-78); ALBUMIN 2.7 G/DL (3.4-5.0); ALBUMIN/GLOBULIN RATIO 0.5 (1.1-1.5); ALKALINE PHOSPHATASE 152 IU/L (46-116); ANION GAP 3 (8-16); ASPARTATE AMINO TRANSFERASE 28 U/L (10-37); BILIRUBIN,TOTAL 0.7 MG/DL (0.1-1.0); BLOOD UREA NITROGEN 12 MG/DL (7-18); BUN/CREATININE RATIO 18.8 (6.6-38.0); CALCIUM 8.5 MG/DL (8.5-10.1); CHLORIDE 101 MMOL/L (99-107); CHOLESTEROL 119 MG/DL (0-200); CREATININE 0.64 MG/DL (0.40-0.90); GLUCOSE 104 MG/DL (70-104); HDL CHOLESTEROL 60 MG/DL (35-60); LDL CHOLESTEROL 46 MG/DL (50-100); MAGNESIUM 1.6 MG/DL (1.5-2.4); POTASSIUM 3.7 MMOL/L (3.5-5.1); SODIUM 138 MMOL/L (135-145); TOTAL CARBON DIOXIDE 34.4 MMOL/L (24-32); TOTAL PROTEIN 8.1 G/DL (6.4-8.2); TRIGLYCERIDES 104 MG/DL (20-135); eGFR > 90 ML/MIN
[2021-09-04] MEDS: levoFLOXACIN-Levaquin 750MG/D5 150 ML IV SCH (09:32)
[2021-09-04] MEDS: levoTHYROXINE 25mcg tablet PO SCH (09:32)
[2021-09-04] MEDS: atorvastatin 20mg tablet PO SCH (09:33)
[2021-09-04] MEDS: pantoprazole 40mg Tablet.DR PO SCH (09:34)
[2021-09-04] MEDS: nicotine 21mg patch - 24 hr TD SCH (09:35)
[2021-09-04] MEDS: enoxaparin 60mg/0.6ml syringe SUBCUT SCH ×2 (09:35→20:06)
[2021-09-04] MEDS: aspirin 81mg, enteric-coated 1 TAB TABLET.DR PO SCH (09:36)
[2021-09-04] MEDS: losartan 50mg tablet PO SCH (09:37)
[2021-09-04] MEDS: furosemide 20 MG/2 ML vial IV SCH (09:40)
[2021-09-04 10:00] VITALS: BP 153/65
--- NOTE | 2021-09-04 10:32 | NUR ---
patient stated she is allergic to all steroids and will swell up and get red and itchy. So she refused her dexamethasone.
[2021-09-04] MEDS: nystatin 15 GM powder TP SCH ×2 (13:00→20:04)
[2021-09-04 17:10] LABS: D-DIMER 1.15 MG/L FEU (0-0.50)
[2021-09-04 18:00] VITALS: BP 147/71
--- NOTE | 2021-09-04 19:02 | NUR ---
Problems reprioritized. Patient report given, questions answered & plan of care reviewed with LAVELLE Dorantes.
[2021-09-04] MEDS: REMDESIVIR 100 MG in NS 100ml IVPB IV SCH (20:04)
[2021-09-04] MEDS: insulin glargine (Lantus) pen - multi-dose SQ SCH (21:00)
[2021-09-04 22:00] VITALS: BP 143/74
[2021-09-05 02:00] VITALS: BP 132/63
[2021-09-05] MEDS: diphenhydrAMINE 25mg capsule PO PRN ×2 (04:05→22:46)
[2021-09-05] MEDS: HYDROcodone/acetaminophen 5mg/325mg tablet PO PRN ×2 (04:05→22:47)
[2021-09-05 06:00] VITALS: BP 138/76
--- NOTE | 2021-09-05 06:24 | NUR ---
Problems reprioritized. Patient report given, questions answered & plan of care reviewed with Magdi VALDERRAMA.
[2021-09-05] MEDS: nicotine 21mg patch - 24 hr TD SCH (08:00)
[2021-09-05] MEDS: K and/or MAG REPLACEMENT MC SCH ×2 (08:00→19:46)
[2021-09-05] MEDS: enoxaparin 60mg/0.6ml syringe SUBCUT SCH ×2 (08:00→19:46)
[2021-09-05] MEDS: docusate sod 100mg capsule PO SCH ×4 (08:00→19:47)
[2021-09-05 08:33] LABS: ALANINE AMINOTRANSFERASE 25 U/L (12-78); ALBUMIN 2.8 G/DL (3.4-5.0); ALBUMIN/GLOBULIN RATIO 0.6 (1.1-1.5); ALKALINE PHOSPHATASE 150 IU/L (46-116); ANION GAP 9 (8-16); ASPARTATE AMINO TRANSFERASE 26 U/L (10-37); BILIRUBIN,TOTAL 0.5 MG/DL (0.1-1.0); BLOOD UREA NITROGEN 17 MG/DL (7-18); BUN/CREATININE RATIO 32.1 (6.6-38.0); C-REACTIVE PROTEIN 6.61 MG/DL (0.0-0.5); CALCIUM 8.6 MG/DL (8.5-10.1); CHLORIDE 99 MMOL/L (99-107); CREATININE 0.53 MG/DL (0.40-0.90); GLUCOSE 180 MG/DL (70-104); SODIUM 138 MMOL/L (135-145); TOTAL CARBON DIOXIDE 30.5 MMOL/L (24-32); TOTAL PROTEIN 7.8 G/DL (6.4-8.2); eGFR > 90 ML/MIN
[2021-09-05 08:43] LABS: POTASSIUM 4.6 MMOL/L (3.5-5.1)
[2021-09-05 08:49] LABS: BASOPHILS % (AUTO) 0.2 % (0-1); EOSINOPHILS % (AUTO) 0 % (0-6); HEMATOCRIT 42.4 % (35.0-45.0); LYMPHOCYTES % (AUTO) 15.2 % (21-51); MEAN CORPUSCULAR HEMOGLOBIN 29.9 PG (27.0-31.0); MEAN CORPUSCULAR HGB CONC 33.1 g/dL (33.0-36.5); MEAN CORPUSCULAR VOLUME 90.5 FL (78-98); MEAN PLATELET VOLUME 7.8 FL (7.4-10.4); MONOCYTES # (AUTO) 0.2 X10'3 (0-0.9); MONOCYTES % (AUTO) 3.7 % (2-12); NEUTROPHILS # (AUTO) 5.1 X10'3 (1.8-7.7); NEUTROPHILS % (AUTO) 80.9 % (42-75); PLATELET COUNT 353 X10'3 (140-440); RED BLOOD COUNT 4.68 X10'6 (4.20-5.60); WHITE BLOOD COUNT 6.3 X10'3 (4.5-11.0)
[2021-09-05] MEDS: atorvastatin 20mg tablet PO SCH (08:52)
[2021-09-05] MEDS: nystatin 15 GM powder TP SCH ×3 (08:52→19:58)
[2021-09-05] MEDS: levoTHYROXINE 25mcg tablet PO SCH (08:52)
[2021-09-05] MEDS: pantoprazole 40mg Tablet.DR PO SCH (08:52)
[2021-09-05] MEDS: aspirin 81mg, enteric-coated 1 TAB TABLET.DR PO SCH (08:53)
[2021-09-05] MEDS: losartan 50mg tablet PO SCH (08:53)
[2021-09-05] MEDS: furosemide 20 MG/2 ML vial IV SCH (08:54)
[2021-09-05] MEDS: dexamethasone 4mg/ml inj IV SCH ×2 (08:54→19:46)
[2021-09-05] MEDS: levoFLOXACIN-Levaquin 750MG/D5 150 ML IV SCH (08:55)
[2021-09-05] MEDS: insulin Lispro (HumaLOG) vial - multi-dose SQ SCH (09:19)
[2021-09-05 09:43] LABS: D-DIMER 7.73 MG/L FEU (0-0.50)
[2021-09-05 10:00] VITALS: BP 130/72
[2021-09-05 18:00] VITALS: BP 130/100
[2021-09-05] MEDS: insulin glargine (Lantus) pen - multi-dose SQ SCH (21:00)
--- NOTE | 2021-09-05 21:00 | NUR ---
Pt refusing ALL steroids-no decadron given. Also refused post dinner insulin of 2 units. Will re-check glu at 2100 and cover with insulin if needed.
[2021-09-05 22:00] VITALS: BP 132/72
[2021-09-05] MEDS: REMDESIVIR 100 MG in NS 100ml IVPB IV SCH (22:47)
[2021-09-06 02:00] VITALS: BP 105/66
[2021-09-06 06:00] VITALS: BP 139/66
[2021-09-06 06:59] LABS: BASOPHILS # (AUTO) 0.1 X10'3 (0-0.2); BASOPHILS % (AUTO) 1.4 % (0-1); EOSINOPHILS # (AUTO) 0.1 X10'3 (0-0.9); EOSINOPHILS % (AUTO) 0.7 % (0-6); HEMATOCRIT 41.4 % (35.0-45.0); LYMPHOCYTES # (AUTO) 3.2 X10'3 (1.1-4.8); LYMPHOCYTES % (AUTO) 29.8 % (21-51); MEAN CORPUSCULAR HEMOGLOBIN 30.4 PG (27.0-31.0); MEAN CORPUSCULAR HGB CONC 33.8 g/dL (33.0-36.5); MEAN CORPUSCULAR VOLUME 89.8 FL (78-98); MEAN PLATELET VOLUME 7.7 FL (7.4-10.4); MONOCYTES # (AUTO) 0.7 X10'3 (0-0.9); NEUTROPHILS # (AUTO) 6.5 X10'3 (1.8-7.7); NEUTROPHILS % (AUTO) 61.1 % (42-75); PLATELET COUNT 429 X10'3 (140-440); RED BLOOD COUNT 4.61 X10'6 (4.20-5.60); RED CELL DISTRIBUTION WIDTH 12.9 % (11.5-14.5); WHITE BLOOD COUNT 10.6 X10'3 (4.5-11.0)
[2021-09-06 07:09] LABS: D-DIMER 0.32 MG/L FEU (0-0.50)
[2021-09-06 07:29] LABS: ALANINE AMINOTRANSFERASE 24 U/L (12-78); ALBUMIN 2.9 G/DL (3.4-5.0); ALBUMIN/GLOBULIN RATIO 0.6 (1.1-1.5); ALKALINE PHOSPHATASE 147 IU/L (46-116); ANION GAP 6 (8-16); ASPARTATE AMINO TRANSFERASE 22 U/L (10-37); BILIRUBIN,TOTAL 0.4 MG/DL (0.1-1.0); BLOOD UREA NITROGEN 22 MG/DL (7-18); BUN/CREATININE RATIO 27.8 (6.6-38.0); C-REACTIVE PROTEIN 2.97 MG/DL (0.0-0.5); CALCIUM 8.7 MG/DL (8.5-10.1); CHLORIDE 99 MMOL/L (99-107); CREATININE 0.79 MG/DL (0.40-0.90); GLUCOSE 146 MG/DL (70-104); MAGNESIUM 1.8 MG/DL (1.5-2.4); POTASSIUM 3.9 MMOL/L (3.5-5.1); SODIUM 140 MMOL/L (135-145); TOTAL CARBON DIOXIDE 34.9 MMOL/L (24-32); TOTAL PROTEIN 7.9 G/DL (6.4-8.2); eGFR 71 ML/MIN
[2021-09-06] MEDS: nicotine 21mg patch - 24 hr TD SCH (08:25)
[2021-09-06] MEDS: losartan 50mg tablet PO SCH (08:25)
[2021-09-06] MEDS: pantoprazole 40mg Tablet.DR PO SCH (08:26)
[2021-09-06] MEDS: aspirin 81mg, enteric-coated 1 TAB TABLET.DR PO SCH (08:26)
[2021-09-06] MEDS: atorvastatin 20mg tablet PO SCH (08:26)
[2021-09-06] MEDS: docusate sod 100mg capsule PO SCH (08:26)
[2021-09-06] MEDS: levoTHYROXINE 25mcg tablet PO SCH (08:26)
[2021-09-06] MEDS: enoxaparin 60mg/0.6ml syringe SUBCUT SCH (08:27)
[2021-09-06] MEDS: furosemide 20 MG/2 ML vial IV SCH (08:28)
[2021-09-06] MEDS: insulin Lispro (HumaLOG) vial - multi-dose SQ SCH (08:31)
--- NOTE | 2021-09-06 09:14 | NUR ---
Initial: Pt admitted w/ acute hypoxemic respiratory failure and Covid PNA per EMR, on 6L NC. Pt currently on Carb controlled diet w/ moderate PO intake, avt 68% x 6 meals which meets 86% of est energy needs and 96% of est protein needs. Will provide smoothies BID to help meet minimum nutrient needs. LBM 2 receiving routine colace. Will continue to monitor and make recommendations as appropriate. Recs: 1. Continue Carb controlled diet as tolerated 2. Smoothies BIDBD 3. Bowel care per rx 4. Scaled wts Addendum: 09/06/21 at [address] Amended: Links added.
[2021-09-06 10:00] VITALS: BP 90/57
[2021-09-06] MEDS ORDERED: APIX5TAB3 PO (11:30)
--- NOTE | 2021-09-06 14:49 | NUR ---
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 1. Patient instructed to call their primary doctor, or go the ED immediately if any of the following symptoms occur: * Increased pain in wound * Increase in drainage from the wound * Redness in the skin surrounding the wound * Warmth in the skin surrounding the wound * Bleeding from the wound * Temperature of 101 or greater 2. If any of these occur while in the hospital tell a nurse immediately. PRESSURE ULCER EDUCATION: DEFINITION: A pressure ulcer is an area of skin that breaks down when you stay in one position too long. The constant pressure against the skin reduces the blood flow to that area and the affected tissue dies. CAUSES: "Being bedridden or in a wheelchair "Fragile skin "Having a chronic condition, such as diabetes or vascular disease "Inability to move certain parts of your body without assistance "Older age "Incontinence of urine or stool SYMPTOMS: "A reddened area that DOES NOT turn white when pressed on - this can be the beginning of a pressure ulcer "A blister, deep sore or a crater - these can be advanced pressure ulcers FIRST AID: "Relieve the pressure on this area "Keep the area clean and dry "Call your primary doctor if you see any of the above symptoms "DO NOT massage the area "DO NOT use a donut shaped or ring shaped pillow- these actually interfere with the blood flow and cause complications PREVENTION: "Check for pressure ulcers everyday "Change position at least every two hours to relieve pressure "Use items that help relieve pressure- pillows, sheepskin, foam padding, and powders. "Keep skin clean and dry "Eat healthy well balanced meals "Exercise daily IF YOU SEE ANY OF THESE SYMPTOMS WHILE IN THE HOSPITAL - TELL YOUR NURSE IMMEDIATELY. IF YOU SEE ANY OF THESE SYMPTOMS WHILE AT HOME OR HAVE ANY QUESTIONS OR CONCERNS ABOUT PRESSURE ULCERS - CALL YOUR PRIMARY DOCTOR IMMEDIATELY. Addendum: 09/06/21 at 1458 by Dionne Gabriel RN Amended: Links added.
--- NOTE | 2021-09-06 16:00 | NUR ---
patient discharge home alert and orient , discharge instructions was discussed. was transported with her own oxygen.
== END 2021-09-06 16:00 | disposition home health service (06) | DRG 177 ==
LOC: ER 17:57 → UNDOADMIN 22:16 → ORTHO 4S 22:16
PROVIDERS: ADMIT Family Medicine; ATTEND Internal Medicine
PROC: XW033E5 Introduction of Remdesivir Anti-infective into Peripheral Vein, Percutaneous Approach, New Technology Group 5 (ICD-10-PCS; principal; 2021-09-03)
PROC: B32T1ZZ Computerized Tomography (CT Scan) of Left Pulmonary Artery using Low Osmolar Contrast (ICD-10-PCS; 2021-09-03)
PROC: B3201ZZ Computerized Tomography (CT Scan) of Thoracic Aorta using Low Osmolar Contrast (ICD-10-PCS; 2021-09-03)
PROC: B32S1ZZ Computerized Tomography (CT Scan) of Right Pulmonary Artery using Low Osmolar Contrast (ICD-10-PCS; 2021-09-03)
PROC: 5A0935A Assistance with Respiratory Ventilation, Less than 24 Consecutive Hours, High Flow/Velocity Cannula (ICD-10-PCS; 2021-09-04)
DX: U07.1 COVID-19 (principal); J12.82 Pneumonia due to coronavirus disease 2019; J96.21 Acute and chronic respiratory failure with hypoxia; I50.33 Acute on chronic diastolic (congestive) heart failure; J44.0 Chronic obstructive pulmonary disease with (acute) lower respiratory infection; Z68.42 Body mass index [BMI] 45.0-49.9, adult; J44.1 Chronic obstructive pulmonary disease with (acute) exacerbation; E66.01 Morbid (severe) obesity due to excess calories; I11.0 Hypertensive heart disease with heart failure; E11.9 Type 2 diabetes mellitus without complications; E03.9 Hypothyroidism, unspecified; E78.00 Pure hypercholesterolemia, unspecified; E78.5 Hyperlipidemia, unspecified; F17.210 Nicotine dependence, cigarettes, uncomplicated; I27.81 Cor pulmonale (chronic); Z79.01 Long term (current) use of anticoagulants; Z79.82 Long term (current) use of aspirin; Z79.899 Other long term (current) drug therapy; Z79.84 Long term (current) use of oral hypoglycemic drugs; Z91.040 Latex allergy status; Z88.0 Allergy status to penicillin; Z88.2 Allergy status to sulfonamides; Z88.8 Allergy status to other drugs, medicaments and biological substances; Z91.018 Allergy to other foods; Z90.49 Acquired absence of other specified parts of digestive tract; Z99.81 Dependence on supplemental oxygen; Z71.6 Tobacco abuse counseling
CPT/HCPCS: 36415; 36600; 71045; 71275; 80053; 80061; 82803; 82948; 83036; 83605; 83735; 83880; 84100; 84132; 84145; 84484; 85018; 85025; 85379; 85610; 85730; 86140; 87040; 87081; 87635; 93005; 93971; 94760; 96374; 97161; 97530; 99291; C9803; G0378; J1100; J1650; J1815; J1940; J1956; J3490; Q0163; Q9967

== ENCOUNTER 2021-10-18 13:37 | Inpatient (IN) | payer MEDICARE, MEDICAID ==
[~2021-10-18] VITALS: Ht 157.5 cm; Wt 117.3 kg
[~2021-10-18 13:37] MED LIST changes: +APIX5TAB3 PO; +DICY10CA88 PO; +FURO-150 PO; +HYDR-3973 PO; -LACT1CAP26 PO; +LOSA25TA41 PO
[2021-10-18] MEDS ORDERED: magnesium 2GM in 50ml NS 50 ML IV ONE (14:00)
[2021-10-18] MEDS ORDERED: LORazepam 2 mg/ml vial IV ONE (14:00)
[2021-10-18] MEDS ORDERED: albuterol 2.5 MG/3 ML nebule CONTNEB PRN (14:00)
[2021-10-18 14:09] LABS: BASOPHILS # (AUTO) 0.1 X10'3 (0-0.2); BASOPHILS % (AUTO) 0.5 % (0-1); EOSINOPHILS % (AUTO) 0.2 % (0-6); HEMATOCRIT 44.5 % (35.0-45.0); HEMOGLOBIN 14.7 g/dl (12.0-16.0); LYMPHOCYTES # (AUTO) 3.1 X10'3 (1.1-4.8); MEAN CORPUSCULAR HEMOGLOBIN 29.8 PG (27.0-31.0); MEAN CORPUSCULAR HGB CONC 33.1 g/dL (33.0-36.5); MEAN CORPUSCULAR VOLUME 90.1 FL (78-98); MEAN PLATELET VOLUME 7.7 FL (7.4-10.4); MONOCYTES # (AUTO) 0.8 X10'3 (0-0.9); MONOCYTES % (AUTO) 4.7 % (2-12); NEUTROPHILS # (AUTO) 13.3 X10'3 (1.8-7.7); NEUTROPHILS % (AUTO) 76.6 % (42-75); PLATELET COUNT 355 X10'3 (140-440); RED BLOOD COUNT 4.93 X10'6 (4.20-5.60); RED CELL DISTRIBUTION WIDTH 14.4 % (11.5-14.5); WHITE BLOOD COUNT 17.4 X10'3 (4.5-11.0)
[2021-10-18] MEDS ORDERED: CefTRIAXone 2gm/NS 100ml IVPB 100 ML IV ONE (14:15)
[2021-10-18] MEDS ORDERED: furosemide 10 MG/1 ML 10ml inj IV ONE (14:30)
[2021-10-18] MEDS ORDERED: azithromycin/NS 500mg/250ml 250 ML IV ONE (14:35)
[2021-10-18] MEDS ORDERED: APIX2.5T PO (16:20)
[2021-10-18] MEDS ORDERED: PANT-47 PO (16:21)
[2021-10-18] MEDS ORDERED: morphine 4 MG/ML inj SYRINge IV ONE (16:30)
[2021-10-18 16:43] LABS: ALANINE AMINOTRANSFERASE 21 U/L (12-78); ALBUMIN 3.2 G/DL (3.4-5.0); ALBUMIN/GLOBULIN RATIO 0.6 (1.1-1.5); ALKALINE PHOSPHATASE 197 IU/L (46-116); ANION GAP 13 (8-16); ASPARTATE AMINO TRANSFERASE 27 U/L (10-37); BILIRUBIN,TOTAL 0.6 MG/DL (0.1-1.0); BLOOD UREA NITROGEN 17 MG/DL (7-18); BUN/CREATININE RATIO 23.6 (6.6-38.0); CALCIUM 9.2 MG/DL (8.5-10.1); CHLORIDE 99 MMOL/L (99-107); CREATININE 0.72 MG/DL (0.40-0.90); GLUCOSE 126 MG/DL (70-104); POTASSIUM 4.1 MMOL/L (3.5-5.1); SODIUM 138 MMOL/L (135-145); TOTAL CARBON DIOXIDE 26.3 MMOL/L (24-32); TOTAL PROTEIN 8.7 G/DL (6.4-8.2); eGFR 79 ML/MIN
[2021-10-18] MEDS ORDERED: non-formulary drug (Levalbuterol Tartrate (Xopenex Hfa) 2 PUFFS) INH PRN (17:40)
[2021-10-18] MEDS ORDERED: ipratropium/albuterol 3ml nebule NEB PRN (17:45)
[2021-10-18] MEDS ORDERED: ondansetron/PF 4mg/2ml inj IV PRN (18:35)
[2021-10-18] MEDS ORDERED: acetaminophen 650mg rectal suppository RC PRN (18:35)
[2021-10-18] MEDS ORDERED: acetaminophen 325mg tablet PO PRN (18:35)
[2021-10-18] MEDS ORDERED: magnesium Cl slow-release 64mg tablet PO PRN (18:35)
[2021-10-18] MEDS ORDERED: magnesium hydroxide 30ml (MOM) UD suspension PO PRN (18:35)
[2021-10-18] MEDS ORDERED: bisacodyl 10mg suppository rectal RC PRN (18:35)
[2021-10-18] MEDS ORDERED: magnesium 4gm in 100ml NS 100 ML IV PRN (18:35)
[2021-10-18] MEDS ORDERED: magnesium 2GM in 50ml NS 50 ML IV PRN (18:35)
[2021-10-18] MEDS ORDERED: potassium Cl 20 mEq SR tablet PO PRN ×2 (18:35)
[2021-10-18] MEDS ORDERED: MESSAGE TO PHARMACY PO ONE (18:35)
[2021-10-18] MEDS ORDERED: DEXTROSE 15 GM of carb/4 tabs (each vial/BOTTLE has 4 tablets) PO PRN ×2 (18:35)
[2021-10-18] MEDS ORDERED: glucagon, human recombinant 1mg kit SUBCUT PRN (18:35)
[2021-10-18] MEDS ORDERED: insulin Lispro (HumaLOG) vial - multi-dose SQ SCH (18:35)
[2021-10-18] MEDS ORDERED: potassium CL 10mEq/100ml bag 100 ML IV PRN (18:35)
[2021-10-18] MEDS ORDERED: mag hydrox/Alum hydrox/simeth 30ml oral suspension PO PRN (18:35)
[2021-10-18] MEDS ORDERED: dextrose 50%-water 50ml dispensing syringe IV PRN ×2 (18:35)
[2021-10-18] MEDS: normal saline 1000ml 1,000 ML IV SCH (19:13)
[2021-10-18] MEDS ORDERED: furosemide 20MG tablet PO SCH (20:00)
[2021-10-18] MEDS ORDERED: docusate sod 100mg capsule PO SCH (20:00)
[2021-10-18] MEDS: K and/or MAG REPLACEMENT MC SCH (20:00)
--- NOTE | 2021-10-18 20:28 | NUR ---
Received report from MÓNICA Domínguez RN about patient going to room 3014B. Awaiting for patient arrival.
[2021-10-18] MEDS: insulin glargine (Lantus) pen - multi-dose SQ SCH (21:00)
--- NOTE | 2021-10-18 21:00 | NUR ---
The patient, VIKY DUOGN, 76 y/o, F admitted by GERARD MOSQUEDA MD, was given written information regarding hospital policies, unit procedures and contact persons. See Admission information. Dx: Resp. failure. Hx: COPD, Covid+, DMII, chronic pain, Hyperlipidemia, Diverticulitis, Peptic Ulcer, GERD, Bronchitis. AAOX4, Sx: Gall bladder, hernia repair. Patient refused for us to check her belongings (purse). Need standby assist, bedside commode in place. Denies any discomfort at this time. SOB with exertion and when lying flat noted, 02 at 6L at this time. Safety measures and comfort maintained. Call light within reach. Will continue to monitor.
[2021-10-18] MEDS: furosemide 40mg/4ml inj IV SCH (21:17)
[2021-10-18] MEDS: docusate sod 100mg capsule PO SCH (21:18)
[2021-10-18] MEDS: acetaminophen 325mg tablet PO PRN (21:18)
[2021-10-18] MEDS: dicyclomine 10 MG capsule PO SCH (21:18)
[2021-10-18] MEDS: apixaban 2.5mg tablet PO SCH (21:18)
[2021-10-18] MEDS: diphenhydrAMINE 25mg capsule PO PRN (21:18)
[2021-10-18 22:00] VITALS: BP 120/68
[2021-10-18] MEDS: ipratropium/albuterol 3ml nebule NEB SCH (22:52)
[2021-10-19 02:00] VITALS: BP 125/95
[2021-10-19] MEDS ORDERED: HYDROcodone/acetaminophen 5mg/325mg tablet PO ONE (02:40)
--- NOTE | 2021-10-19 02:42 | NUR ---
Patient c/o pain, pain meds was given [address] Covarrubias made aware and new order was received and carried out.
[2021-10-19] MEDS: ipratropium/albuterol 3ml nebule NEB SCH ×6 (02:50→22:26)
[2021-10-19] MEDS: diphenhydrAMINE 25mg capsule PO PRN ×3 (03:28→19:55)
[2021-10-19 06:00] VITALS: BP 109/55
--- NOTE | 2021-10-19 06:34 | NUR ---
Problems reprioritized. Patient report given, questions answered & plan of care reviewed with LAVELLE Masters.
[2021-10-19 07:11] LABS: BASOPHILS % (AUTO) 0.4 % (0-1); EOSINOPHILS % (AUTO) 0.2 % (0-6); HEMATOCRIT 41.1 % (35.0-45.0); HEMOGLOBIN 13.6 g/dl (12.0-16.0); LYMPHOCYTES % (AUTO) 15.6 % (21-51); MEAN CORPUSCULAR HEMOGLOBIN 29.9 PG (27.0-31.0); MEAN CORPUSCULAR HGB CONC 33.2 g/dL (33.0-36.5); MEAN CORPUSCULAR VOLUME 90.3 FL (78-98); MEAN PLATELET VOLUME 7.3 FL (7.4-10.4); MONOCYTES # (AUTO) 0.6 X10'3 (0-0.9); MONOCYTES % (AUTO) 4.8 % (2-12); NEUTROPHILS # (AUTO) 10.3 X10'3 (1.8-7.7); PLATELET COUNT 309 X10'3 (140-440); RED BLOOD COUNT 4.55 X10'6 (4.20-5.60); RED CELL DISTRIBUTION WIDTH 14.5 % (11.5-14.5)
[2021-10-19 07:30] LABS: ALANINE AMINOTRANSFERASE 19 U/L (12-78); ALBUMIN 2.9 G/DL (3.4-5.0); ALBUMIN/GLOBULIN RATIO 0.5 (1.1-1.5); ALKALINE PHOSPHATASE 174 IU/L (46-116); ANION GAP 5 (8-16); ASPARTATE AMINO TRANSFERASE 22 U/L (10-37); BILIRUBIN,TOTAL 0.8 MG/DL (0.1-1.0); BLOOD UREA NITROGEN 16 MG/DL (7-18); BUN/CREATININE RATIO 23.5 (6.6-38.0); CALCIUM 8.8 MG/DL (8.5-10.1); CHLORIDE 102 MMOL/L (99-107); CREATININE 0.68 MG/DL (0.40-0.90); GLUCOSE 129 MG/DL (70-104); MAGNESIUM 2.3 MG/DL (1.5-2.4); PHOSPHORUS 3.6 MG/DL (2.3-4.5); POTASSIUM 3.8 MMOL/L (3.5-5.1); SODIUM 138 MMOL/L (135-145); TOTAL CARBON DIOXIDE 30.9 MMOL/L (24-32); TOTAL PROTEIN 8.4 G/DL (6.4-8.2); eGFR 85 ML/MIN
[2021-10-19] MEDS: cefTRIAXone 1g/NS 100ml IVPB 100 ML IV SCH (07:31)
[2021-10-19] MEDS: cholecalciferol (vitamin D3) 1,000 unit (25mcg) tablet PO SCH (07:33)
[2021-10-19] MEDS: atorvastatin 20mg tablet PO SCH (07:34)
[2021-10-19] MEDS: multivitamins, therapeutics tablet PO SCH (07:34)
[2021-10-19] MEDS: magnesium oxide 400mg tablet PO SCH (07:35)
[2021-10-19] MEDS: azithromycin 250mg tablet PO SCH (07:35)
[2021-10-19] MEDS: aspirin 81mg, enteric-coated 1 TAB TABLET.DR PO SCH (07:36)
[2021-10-19] MEDS: pantoprazole 40mg Tablet.DR PO SCH (07:36)
[2021-10-19] MEDS: apixaban 2.5mg tablet PO SCH ×2 (07:36→19:55)
[2021-10-19] MEDS: docusate sod 100mg capsule PO SCH ×2 (07:36→19:54)
[2021-10-19] MEDS: levoTHYROXINE 25mcg tablet PO SCH (07:37)
[2021-10-19] MEDS: dicyclomine 10 MG capsule PO SCH ×4 (07:37→21:03)
[2021-10-19] MEDS: furosemide 40mg/4ml inj IV SCH ×2 (07:38→19:54)
[2021-10-19] MEDS: losartan 25mg tablet PO SCH (07:43)
[2021-10-19] MEDS: K and/or MAG REPLACEMENT MC SCH ×2 (08:00→20:00)
--- NOTE | 2021-10-19 09:53 | NUR ---
Problems reprioritized. Patient report given, questions answered & plan of care reviewed with Annabelle VALDERRAMA.
[2021-10-19 11:00] VITALS: BP 117/57
--- NOTE | 2021-10-19 11:40 | NUR ---
Message: [id number]- [place] Shereen, patient is asking for pain medication. she's had [place] and morphine available but it has been DC'd. [phone] Annabelle
[2021-10-19] MEDS: acetaminophen 325mg tablet PO PRN ×2 (12:14→19:55)
[2021-10-19 15:00] VITALS: BP 119/51
[2021-10-19 19:00] VITALS: BP 125/64
--- NOTE | 2021-10-19 20:00 | NUR ---
[phone] MESSAGE: Jennifer Subramanina 3014B c/o generalized pain, hx of chronic pain, only Tylenol to be given and she stated it's not working. Thanks. Capri, xt [phone]
--- NOTE | 2021-10-19 20:47 | NUR ---
[phone] MESSAGE: Jennifer Subramanian [facility] [id number] req. for Nystatin powder due to yeast rash under abdominal folds. Thanks. moris Farooq [phone]
[2021-10-19] MEDS: insulin glargine (Lantus) pen - multi-dose SQ SCH (21:00)
[2021-10-19] MEDS: nystatin 15 GM powder TP SCH (21:06)
[2021-10-19 23:00] VITALS: BP 117/74
[2021-10-19] MEDS: HYDROcodone/acetaminophen 5mg/325mg tablet PO PRN (23:31)
[2021-10-20 03:00] VITALS: BP 101/52
[2021-10-20] MEDS: diphenhydrAMINE 25mg capsule PO PRN ×3 (03:43→20:00)
[2021-10-20] MEDS: ipratropium/albuterol 3ml nebule NEB SCH ×5 (03:44→19:47)
[2021-10-20] MEDS: HYDROcodone/acetaminophen 5mg/325mg tablet PO PRN ×3 (05:47→20:00)
[2021-10-20 06:00] VITALS: BP 129/65
--- NOTE | 2021-10-20 06:04 | NUR ---
Problems reprioritized. Patient report given, questions answered & plan of care reviewed with LAVELLE Masters.
[2021-10-20] MEDS: K and/or MAG REPLACEMENT MC SCH ×2 (08:00→20:00)
[2021-10-20] MEDS: levoTHYROXINE 25mcg tablet PO SCH (08:31)
[2021-10-20] MEDS: cefTRIAXone 1g/NS 100ml IVPB 100 ML IV SCH (08:32)
[2021-10-20] MEDS: atorvastatin 20mg tablet PO SCH (08:32)
[2021-10-20] MEDS: cholecalciferol (vitamin D3) 1,000 unit (25mcg) tablet PO SCH (08:33)
[2021-10-20] MEDS: losartan 25mg tablet PO SCH (08:34)
[2021-10-20] MEDS: azithromycin 250mg tablet PO SCH (08:35)
[2021-10-20] MEDS: multivitamins, therapeutics tablet PO SCH (08:35)
[2021-10-20] MEDS: dicyclomine 10 MG capsule PO SCH ×4 (08:35→20:00)
[2021-10-20] MEDS: pantoprazole 40mg Tablet.DR PO SCH (08:35)
[2021-10-20] MEDS: magnesium oxide 400mg tablet PO SCH (08:36)
[2021-10-20] MEDS: furosemide 40mg/4ml inj IV SCH ×2 (08:37→20:00)
[2021-10-20] MEDS: apixaban 2.5mg tablet PO SCH ×2 (08:37→20:00)
[2021-10-20] MEDS: docusate sod 100mg capsule PO SCH ×2 (08:37→20:00)
[2021-10-20] MEDS: aspirin 81mg, enteric-coated 1 TAB TABLET.DR PO SCH (08:37)
[2021-10-20] MEDS: nystatin 15 GM powder TP SCH ×3 (08:37→21:00)
[2021-10-20 08:57] LABS: BASOPHILS # (AUTO) 0.1 X10'3 (0-0.2); BASOPHILS % (AUTO) 0.5 % (0-1); EOSINOPHILS # (AUTO) 0.2 X10'3 (0-0.9); EOSINOPHILS % (AUTO) 1.8 % (0-6); HEMATOCRIT 40.6 % (35.0-45.0); HEMOGLOBIN 13.6 g/dl (12.0-16.0); LYMPHOCYTES # (AUTO) 2.2 X10'3 (1.1-4.8); LYMPHOCYTES % (AUTO) 20.3 % (21-51); MEAN CORPUSCULAR HEMOGLOBIN 30.6 PG (27.0-31.0); MEAN CORPUSCULAR HGB CONC 33.4 g/dL (33.0-36.5); MEAN CORPUSCULAR VOLUME 91.6 FL (78-98); MEAN PLATELET VOLUME 7.7 FL (7.4-10.4); MONOCYTES # (AUTO) 0.6 X10'3 (0-0.9); MONOCYTES % (AUTO) 5.2 % (2-12); NEUTROPHILS # (AUTO) 7.7 X10'3 (1.8-7.7); NEUTROPHILS % (AUTO) 72.2 % (42-75); PLATELET COUNT 313 X10'3 (140-440); RED BLOOD COUNT 4.44 X10'6 (4.20-5.60); RED CELL DISTRIBUTION WIDTH 14.5 % (11.5-14.5); WHITE BLOOD COUNT 10.7 X10'3 (4.5-11.0)
[2021-10-20 09:30] LABS: ALANINE AMINOTRANSFERASE 23 U/L (12-78); ALBUMIN 2.9 G/DL (3.4-5.0); ALBUMIN/GLOBULIN RATIO 0.5 (1.1-1.5); ALKALINE PHOSPHATASE 208 IU/L (46-116); ANION GAP 13 (8-16); ASPARTATE AMINO TRANSFERASE 26 U/L (10-37); BILIRUBIN,TOTAL 0.5 MG/DL (0.1-1.0); BLOOD UREA NITROGEN 21 MG/DL (7-18); BUN/CREATININE RATIO 29.2 (6.6-38.0); CALCIUM 9.3 MG/DL (8.5-10.1); CHLORIDE 100 MMOL/L (99-107); CREATININE 0.72 MG/DL (0.40-0.90); GLUCOSE 106 MG/DL (70-104); PHOSPHORUS 3.8 MG/DL (2.3-4.5); POTASSIUM 3.7 MMOL/L (3.5-5.1); SODIUM 141 MMOL/L (135-145); TOTAL CARBON DIOXIDE 28.2 MMOL/L (24-32); TOTAL PROTEIN 8.3 G/DL (6.4-8.2); eGFR 79 ML/MIN
[2021-10-20 11:00] VITALS: BP 124/64
[2021-10-20 15:00] VITALS: BP 122/58
[2021-10-20] MEDS: normal saline 1000ml 1,000 ML IV SCH (17:16)
[2021-10-20 18:00] VITALS: BP 134/95
--- NOTE | 2021-10-20 18:42 | NUR ---
Problems reprioritized. Patient report given, questions answered & plan of care reviewed with Trey VALDERRAMA.
[2021-10-20] MEDS: insulin glargine (Lantus) pen - multi-dose SQ SCH (21:00)
[2021-10-20 22:00] VITALS: BP 104/64
[2021-10-21] MEDS: ipratropium/albuterol 3ml nebule NEB SCH ×7 (00:06→23:42)
[2021-10-21 02:00] VITALS: BP 125/68
[2021-10-21] MEDS: HYDROcodone/acetaminophen 5mg/325mg tablet PO PRN ×4 (02:33→20:14)
[2021-10-21] MEDS: diphenhydrAMINE 25mg capsule PO PRN ×4 (02:34→20:15)
[2021-10-21 06:00] VITALS: BP 125/54
[2021-10-21 06:44] LABS: BASOPHILS % (AUTO) 0.4 % (0-1); EOSINOPHILS # (AUTO) 0.2 X10'3 (0-0.9); EOSINOPHILS % (AUTO) 1.8 % (0-6); HEMATOCRIT 38.8 % (35.0-45.0); HEMOGLOBIN 13.1 g/dl (12.0-16.0); LYMPHOCYTES # (AUTO) 2.4 X10'3 (1.1-4.8); LYMPHOCYTES % (AUTO) 24.6 % (21-51); MEAN CORPUSCULAR HEMOGLOBIN 30.8 PG (27.0-31.0); MEAN CORPUSCULAR HGB CONC 33.9 g/dL (33.0-36.5); MEAN PLATELET VOLUME 7.5 FL (7.4-10.4); MONOCYTES # (AUTO) 0.5 X10'3 (0-0.9); NEUTROPHILS # (AUTO) 6.5 X10'3 (1.8-7.7); NEUTROPHILS % (AUTO) 68.2 % (42-75); PLATELET COUNT 349 X10'3 (140-440); RED BLOOD COUNT 4.27 X10'6 (4.20-5.60); WHITE BLOOD COUNT 9.6 X10'3 (4.5-11.0)
[2021-10-21 06:50] LABS: ALANINE AMINOTRANSFERASE 37 U/L (12-78); ALBUMIN 2.8 G/DL (3.4-5.0); ALBUMIN/GLOBULIN RATIO 0.5 (1.1-1.5); ALKALINE PHOSPHATASE 247 IU/L (46-116); ANION GAP 2 (8-16); ASPARTATE AMINO TRANSFERASE 32 U/L (10-37); BILIRUBIN,TOTAL 0.5 MG/DL (0.1-1.0); BLOOD UREA NITROGEN 15 MG/DL (7-18); BUN/CREATININE RATIO 22.7 (6.6-38.0); CALCIUM 9.1 MG/DL (8.5-10.1); CHLORIDE 101 MMOL/L (99-107); CREATININE 0.66 MG/DL (0.40-0.90); GLUCOSE 168 MG/DL (70-104); PHOSPHORUS 4.4 MG/DL (2.3-4.5); POTASSIUM 3.8 MMOL/L (3.5-5.1); SODIUM 138 MMOL/L (135-145); TOTAL CARBON DIOXIDE 34.7 MMOL/L (24-32); TOTAL PROTEIN 8.4 G/DL (6.4-8.2); eGFR 88 ML/MIN
[2021-10-21 06:56] LABS: MAGNESIUM 1.9 MG/DL (1.5-2.4)
[2021-10-21] MEDS: furosemide 40mg/4ml inj IV SCH ×2 (07:10→20:14)
[2021-10-21] MEDS: azithromycin 250mg tablet PO SCH (07:11)
[2021-10-21] MEDS: atorvastatin 20mg tablet PO SCH (07:12)
[2021-10-21] MEDS: cholecalciferol (vitamin D3) 1,000 unit (25mcg) tablet PO SCH (07:13)
[2021-10-21] MEDS: apixaban 2.5mg tablet PO SCH ×2 (07:13→20:14)
[2021-10-21] MEDS: losartan 25mg tablet PO SCH (07:14)
[2021-10-21] MEDS: dicyclomine 10 MG capsule PO SCH ×4 (07:14→20:14)
[2021-10-21] MEDS: docusate sod 100mg capsule PO SCH ×2 (07:14→20:14)
[2021-10-21] MEDS: aspirin 81mg, enteric-coated 1 TAB TABLET.DR PO SCH (07:15)
[2021-10-21] MEDS: magnesium oxide 400mg tablet PO SCH (07:15)
[2021-10-21] MEDS: levoTHYROXINE 25mcg tablet PO SCH (07:15)
[2021-10-21] MEDS: pantoprazole 40mg Tablet.DR PO SCH (07:16)
[2021-10-21] MEDS: multivitamins, therapeutics tablet PO SCH (07:16)
[2021-10-21] MEDS: cefTRIAXone 1g/NS 100ml IVPB 100 ML IV SCH (07:22)
[2021-10-21] MEDS: nystatin 15 GM powder TP SCH ×3 (07:23→20:15)
[2021-10-21] MEDS: K and/or MAG REPLACEMENT MC SCH ×2 (08:00→20:00)
[2021-10-21 11:00] VITALS: BP 130/62
[2021-10-21] MEDS: guaiFENesin ER 600mg tablet PO SCH ×2 (13:59→20:14)
--- NOTE | 2021-10-21 14:19 | NUR ---
Positive blood culture page promotional table spacer Message: Dr. Patrick patient in room 8834I Hodgeman, Shereen blood cultures drawn yesterday came back positive in the right arm (gram + cocci pair and chains) [employer]
[2021-10-21 15:00] VITALS: BP_SYST 128; BP_SYST 130; BP_DIAS 62; BP_DIAS 67
--- NOTE | 2021-10-21 18:12 | NUR ---
Problems reprioritized. Patient report given, questions answered & plan of care reviewed with Capri VALDERRAMA.
--- NOTE | 2021-10-21 18:13 | NUR ---
Problems reprioritized. Patient report given, questions answered & plan of care reviewed with LAVELLE Masters. Addendum: 10/21/21 at 1940 by Capri Tucker RN Patient in room [place] [address]. I have received report from LAVELLE Masters and had the opportunity to ask questions and assume patient care.
[2021-10-21 19:00] VITALS: BP 120/57
[2021-10-21] MEDS: insulin glargine (Lantus) pen - multi-dose SQ SCH (21:00)
[2021-10-21 23:00] VITALS: BP 122/68
[2021-10-22] MEDS: diphenhydrAMINE 25mg capsule PO PRN ×2 (02:29→08:39)
[2021-10-22] MEDS: HYDROcodone/acetaminophen 5mg/325mg tablet PO PRN ×2 (02:30→08:38)
[2021-10-22 03:00] VITALS: BP 122/62
[2021-10-22] MEDS: ipratropium/albuterol 3ml nebule NEB SCH ×3 (03:41→11:58)
[2021-10-22 06:00] VITALS: BP 127/57
--- NOTE | 2021-10-22 06:32 | NUR ---
Problems reprioritized. Patient report given, questions answered & plan of care reviewed with LAVELLE Carpenter.
[2021-10-22 06:43] LABS: BASOPHILS % (AUTO) 0.4 % (0-1); EOSINOPHILS # (AUTO) 0.2 X10'3 (0-0.9); HEMATOCRIT 39.6 % (35.0-45.0); HEMOGLOBIN 13.4 g/dl (12.0-16.0); LYMPHOCYTES # (AUTO) 2.5 X10'3 (1.1-4.8); LYMPHOCYTES % (AUTO) 26.6 % (21-51); MEAN CORPUSCULAR HEMOGLOBIN 30.3 PG (27.0-31.0); MEAN CORPUSCULAR HGB CONC 33.7 g/dL (33.0-36.5); MEAN CORPUSCULAR VOLUME 89.9 FL (78-98); MEAN PLATELET VOLUME 7.4 FL (7.4-10.4); MONOCYTES # (AUTO) 0.5 X10'3 (0-0.9); MONOCYTES % (AUTO) 5.2 % (2-12); NEUTROPHILS # (AUTO) 6.2 X10'3 (1.8-7.7); NEUTROPHILS % (AUTO) 65.8 % (42-75); PLATELET COUNT 401 X10'3 (140-440); RED BLOOD COUNT 4.41 X10'6 (4.20-5.60); RED CELL DISTRIBUTION WIDTH 13.9 % (11.5-14.5); WHITE BLOOD COUNT 9.4 X10'3 (4.5-11.0)
[2021-10-22 07:12] LABS: ALANINE AMINOTRANSFERASE 44 U/L (12-78); ALBUMIN 2.9 G/DL (3.4-5.0); ALBUMIN/GLOBULIN RATIO 0.5 (1.1-1.5); ALKALINE PHOSPHATASE 294 IU/L (46-116); ANION GAP 3 (8-16); ASPARTATE AMINO TRANSFERASE 34 U/L (10-37); BILIRUBIN,TOTAL 0.4 MG/DL (0.1-1.0); BLOOD UREA NITROGEN 20 MG/DL (7-18); BUN/CREATININE RATIO 29.4 (6.6-38.0); CALCIUM 9.2 MG/DL (8.5-10.1); CHLORIDE 100 MMOL/L (99-107); CREATININE 0.68 MG/DL (0.40-0.90); GLUCOSE 158 MG/DL (70-104); MAGNESIUM 2.1 MG/DL (1.5-2.4); PHOSPHORUS 4.5 MG/DL (2.3-4.5); POTASSIUM 4.1 MMOL/L (3.5-5.1); SODIUM 138 MMOL/L (135-145); TOTAL CARBON DIOXIDE 35.5 MMOL/L (24-32); TOTAL PROTEIN 8.7 G/DL (6.4-8.2); eGFR 85 ML/MIN
[2021-10-22] MEDS: K and/or MAG REPLACEMENT MC SCH (08:00)
[2021-10-22] MEDS: nystatin 15 GM powder TP SCH ×2 (08:37→12:10)
[2021-10-22] MEDS: azithromycin 250mg tablet PO SCH (08:38)
[2021-10-22] MEDS: apixaban 2.5mg tablet PO SCH (08:38)
[2021-10-22] MEDS: docusate sod 100mg capsule PO SCH (08:39)
[2021-10-22] MEDS: guaiFENesin ER 600mg tablet PO SCH (08:39)
[2021-10-22] MEDS: furosemide 40mg/4ml inj IV SCH (08:39)
[2021-10-22] MEDS: cholecalciferol (vitamin D3) 1,000 unit (25mcg) tablet PO SCH (08:40)
[2021-10-22] MEDS: losartan 25mg tablet PO SCH (08:40)
[2021-10-22] MEDS: multivitamins, therapeutics tablet PO SCH (08:40)
[2021-10-22] MEDS: aspirin 81mg, enteric-coated 1 TAB TABLET.DR PO SCH (08:40)
[2021-10-22] MEDS: pantoprazole 40mg Tablet.DR PO SCH (08:40)
[2021-10-22] MEDS: magnesium oxide 400mg tablet PO SCH (08:41)
[2021-10-22] MEDS: atorvastatin 20mg tablet PO SCH (08:41)
[2021-10-22] MEDS: cefTRIAXone 1g/NS 100ml IVPB 100 ML IV SCH (08:43)
[2021-10-22] MEDS: levoTHYROXINE 25mcg tablet PO SCH (08:45)
[2021-10-22] MEDS: dicyclomine 10 MG capsule PO SCH ×2 (08:46→12:11)
[2021-10-22] MEDS ORDERED: CEFD300C3 PO (10:00)
[2021-10-22] MEDS ORDERED: GUAI600T45 PO (10:02)
[2021-10-22 11:00] VITALS: BP 124/62
--- NOTE | 2021-10-22 12:26 | NUR ---
Pt admitted w/ acute on chronic respiratory failure, CHF exacerbation, COPD w/ exacerbation, and possible metastatic disease per EMR. Pt is currently on 6L HFNC and eating well with mostly 100% PO Heart Healthy/Carb Control meals. Pt is meeting estimated nutrient needs at this time. LBM 10/20, receiving routine Colace per EMR. No nutrition intervention implemented at this time. Will continue to follow. Recommendations: 1. Continue Heart Healthy/Carb Control diet 2. Double protein w/ breakfast for satiety 3. Scaled wt this admit 4. Routine bowel care Addendum: 10/22/21 at [address] Amended: Links added. Addendum: 10/22/21 at [address] i have reviewed assessment by grinder set up operator internal
== END 2021-10-22 14:48 | disposition home health service (06) | DRG 193 ==
LOC: ER 13:37 → ED HOLD 18:37 → PCU 3S 20:35
PROVIDERS: ADMIT Family Medicine; ATTEND Family Medicine
DX: J18.9 Pneumonia, unspecified organism (principal); J96.21 Acute and chronic respiratory failure with hypoxia; I50.33 Acute on chronic diastolic (congestive) heart failure; R65.11 Systemic inflammatory response syndrome (SIRS) of non-infectious origin with acute organ dysfunction; J44.0 Chronic obstructive pulmonary disease with (acute) lower respiratory infection; J44.1 Chronic obstructive pulmonary disease with (acute) exacerbation; Z68.42 Body mass index [BMI] 45.0-49.9, adult; C34.90 Malignant neoplasm of unspecified part of unspecified bronchus or lung; I48.91 Unspecified atrial fibrillation; I11.0 Hypertensive heart disease with heart failure; R91.1 Solitary pulmonary nodule; E03.9 Hypothyroidism, unspecified; Z66 Do not resuscitate; E11.9 Type 2 diabetes mellitus without complications; E66.9 Obesity, unspecified; E78.00 Pure hypercholesterolemia, unspecified; E78.5 Hyperlipidemia, unspecified; F12.90 Cannabis use, unspecified, uncomplicated; F17.210 Nicotine dependence, cigarettes, uncomplicated; Z79.890 Hormone replacement therapy; Z79.01 Long term (current) use of anticoagulants; Z80.1 Family history of malignant neoplasm of trachea, bronchus and lung; Z80.3 Family history of malignant neoplasm of breast; Z90.49 Acquired absence of other specified parts of digestive tract; Z71.6 Tobacco abuse counseling; Z99.81 Dependence on supplemental oxygen; Z88.8 Allergy status to other drugs, medicaments and biological substances; Z88.5 Allergy status to narcotic agent; Z88.2 Allergy status to sulfonamides; Z91.040 Latex allergy status; Z83.3 Family history of diabetes mellitus; Z86.16 Personal history of COVID-19
CPT/HCPCS: 36415; 71045; 80053; 82948; 83605; 83735; 83880; 84100; 84145; 84443; 85025; 87040; 87081; 93005; 94640; 94760; 97110; 97161; 97530; 99285; A7015; G0378; J0456; J0696; J1815; J1940; J2060; J2270; J3475; J7030; Q0163